=== PATIENT | male | born 1955 | race African-American/Black ===

== ENCOUNTER 2021-01-22 18:13 | Emergency (ER) | payer BC ==
[2021-01-22] MEDS ORDERED: LIDOCAINE 1% MPF 5 ML VIAL ONE (18:52)
[2021-01-22] MEDS ORDERED: TETANUS & DIPHTHERIA TOX,ADULT 0.5 ML VIAL ONE (19:00)
--- NOTE | 2021-01-22 20:06 | ER ---
Nurse's Notes [facility] Name: Fabian Galo Age: 65 yrs Sex: Male : 1955 Arrival Date: 01/22/2021 Time: 18:15 Bed 15 Private MD: Diagnosis: Laceration without foreign body of left thumb without damage to nail Presentation: 01/22 18:24 Chief complaint: Patient states: Tripped over dog. Hit L hand on thor in the back of 1 his vehicle. Laceration to L thumb area. Bleeding controlled with pressure. No blood thinners. Coronavirus screen: Vaccine status: Patient reports receiving the 2nd dose of the covid vaccine. Client denies travel out of the [place] in the last 14 days. At this time, the client does not indicate any symptoms associated with coronavirus-19. Ebola Screen: Patient denies travel to an Ebola-affected area in the 21 days before illness onset. Complicating Factors: There are no complicating factors for this patient. Initial Sepsis Screen: Does the patient meet any 2 criteria? No. Patient's initial sepsis screen is negative. Does the patient have a suspected source of infection? Yes: Skin breakdown/wound. Risk Assessment: Do you want to hurt yourself or someone else? Patient reports no desire to harm self or others. Onset of symptoms was January 22, 2021. 18:24 Method Of Arrival: Ambulatory [facility] 18:24 Acuity: DARLENE 4 ll1 Historical: - Allergies: 18:25 No Known Allergies; ll1 - PMHx: 18:25 None; ll1 - PSHx: 18:25 hernia repair; 1 - Immunization history:: Client reports receiving the 2nd dose of the Covid vaccine, Last tetanus immunization: unknown. - Social history:: Smoking status: Patient reports the use of cigarette tobacco products, smokes one-half pack cigarettes per day. Screenin:41 Abuse screen: Denies threats or abuse. Denies injuries from another. Nutritional jt3 screening: No deficits noted. Tuberculosis screening: No symptoms or risk factors identified. Fall Risk None identified. Assessment: 18:41 Pain: Complains of pain in left arm Pain radiates to left hand Pain currently is 6 out jt3 of 10 on a pain scale. Pain began 3 hours ago. Injury Description: Laceration sustained to left hand is jagged, was sustained 2-4 hours ago. 19:45 Reassessment: Patient is alert, oriented x 3, equal unlabored respirations, skin bb warm/dry/pink. Ale Bay CHIEF OF ANESTHESIOLOGY at bedside for laceration repair to left hand. 20:28 Reassessment: Patient is alert, oriented x 3, equal unlabored respirations, skin bb warm/dry/pink. suture line intact, dressing applied. Pt verbalized understanding of and agrees to plan of care discharge instructions given pt ambulated with steady gait to exit. Musculoskeletal: Circulation, motion, and sensation intact. Vital Signs: 18:24 BP 149 / 89; Pulse 84; Resp 16; Temp 98.3; Pulse Ox 100% ; Weight 63.5 kg; Height 5 ft. ll1 6 in. (167.64 cm); Pain 6/10; 20:29 BP 144 / 91; Pulse 75; Resp 16; Pulse Ox 100% on R/A; bb 18:24 Body Mass Index 22.60 (63.50 kg, 167.64 cm) ll1 ED Course: 18:15 Patient arrived in ED. am2 18:19 Ale [facility]C [facility] kb 18:19 Corrine Christian MD is Attending Physician. kb 18:23 Shimon Vargas, HÉCTOR is Primary Nurse. jt3 18:25 Triage completed. ll1 18:25 Arm band placed on Patient placed in an exam room, on a stretcher. ll1 18:41 Patient has correct armband on for positive identification. Bed in low position. Call jt3 light in reach. Side rails up X2. 18:41 No provider procedures requiring assistance completed. jt3 19:45 Assist provider with laceration repair on left hand using sutures. Set up tray. bb Performed by Ale HARTLEY Dressed with Kerlix, Neosporin, Patient tolerated well. 20:27 Dressings: Kerlix X 1; left hand non-adherent dressing x 1 left hand gabbie wrap to left bb hand. 20:30 Patient did not have IV access during this emergency room visit. 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 Exp: jt3 08/07/2022. Lot #: [id number]. } Route: IM; Site: right deltoid; 20:27 Follow up: Response: No adverse reaction bb 19:45 Drug: Lidocaine (1 %) 1 vials {Note: by Ale Bay CHIEF OF ANESTHESIOLOGY to affected area.} Volume: 5 bb ml; Route: Infiltration; 20:15 Drug: Ibuprofen 600 mg Route: PO; pv 20:27 Follow up: Response: No adverse reaction bb Outcome: 20:05 Discharge ordered by MD. reece 20:29 Discharged to home ambulatory. bb 20:29 Condition: stable 20:29 Discharge instructions given to patient, Instructed on discharge instructions, follow up and referral plans. wound care, Demonstrated understanding of instructions, follow-up care, wound care. 20:30 Patient left the ED. bb Signatures: Ale Bay, COSTING ANALYST-C COSTING ANALYST-Ckb Estrella Kent, RN RN bb Adalgisa Andres Lynsay RN RN ll1 Shimon Vargas RN RN jt3 Braden Dunbar, RN RN pv
--- NOTE | 2021-01-22 20:06 | EDPHYS ---
Physician Documentation [facility] Name: Fabian Galo Age: 65 yrs Sex: Male : 1955 Arrival Date: 01/22/2021 Time: 18:15 Bed 15 Private MD: ED Physician Corrine Christian HPI: 01/22 21:07 This 65 yrs old Black Male presents to ER via Ambulatory with complaints of Laceration kb To Hand, Hand Injury. 21:07 The patient has a laceration related to: falling occurred outdoors, and there are no kb complicating factors. The injury was accidental. The laceration(s) is(are) located on the dorsal aspect of proximal phalanx of left thumb. Onset: The symptoms/episode began/occurred today. Associated signs and symptoms: The patient has no apparent associated signs or symptoms. The patient has not experienced similar symptoms in the past. The patient has not recently seen a physician. Pt states he tripped over his dog and fell forward into his car. States he cut his hand on some tools in the trunk. Historical: - Allergies: 18:25 No Known Allergies; ll1 - PMHx: 18:25 None; ll1 - PSHx: 18:25 hernia repair; ll1 - Immunization history:: Client reports receiving the 2nd dose of the Covid vaccine, Last tetanus immunization: unknown. - Social history:: Smoking status: Patient reports the use of cigarette tobacco products, smokes one-half pack cigarettes per day. ROS: 19:09 Constitutional: Negative for fever, chills, and weight loss. kb 21:09 Skin: Positive for laceration(s), of the dorsal aspect of proximal phalanx of left kb thumb. 21:09 All other systems are negative. Exam: 21:09 Constitutional: This is a well developed, well nourished patient who is awake, alert, kb and in no acute distress. Head/Face: Normocephalic, atraumatic. ENT: Moist Mucous membranes Respiratory: Respirations even and unlabored. No increased work of breathing, no retractions or nasal flaring. MS/ Extremity: Pulses equal, no cyanosis. Neurovascular intact. Full, normal range of motion. Neuro: Awake and alert, GCS 15, oriented to person, place, time, and situation. Moves all extremities. Normal gait. Psych: Awake, alert, with orientation to person, place and time. Behavior, mood, and affect are within normal limits. 21:09 Skin: injury, laceration(s), the wound is approximately 2.5 cm(s), of the dorsal aspect of proximal phalanx of left thumb, that can be described as clean, no foreign body, irregular, with moderate bleeding. Vital Signs: 18:24 BP 149 / 89; Pulse 84; Resp 16; Temp 98.3; Pulse Ox 100% ; Weight 63.5 kg; Height 5 ft. ll1 6 in. (167.64 cm); Pain 6/10; 20:29 BP 144 / 91; Pulse 75; Resp 16; Pulse Ox 100% on R/A; bb 18:24 Body Mass Index 22.60 (63.50 kg, 167.64 cm) ll1 Laceration: 20:04 Wound Repair of 2.5cm ( 1.0in ) subcutaneous laceration to dorsal aspect of proximal kb phalanx of left thumb. Irregularly shaped.. Distal neuro/vascular/tendon intact. Anesthesia: Wound infiltrated with 2 mls of 1% lidocaine. Wound prep: Extensive cleansing with hibiclenz by me, Wound irrigation with saline by me. Skin closed with 5 5-0 Prolene using simple sutures and sterile technique. Patient tolerated well. MDM: 18:19 Patient medically screened. kb 19:09 Data reviewed: vital signs, nurses notes. Data interpreted: Pulse oximetry: on room air kb is 100 %. Interpretation: normal. Counseling: I had a detailed discussion with the patient and/or guardian regarding: the historical points, exam findings, and any diagnostic results supporting the discharge/admit diagnosis, the need for outpatient follow up, a family practitioner, to return to the emergency department if symptoms worsen or persist or if there are any questions or concerns that arise at home. 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 Exp: jt3 08/07/2022. Lot #: [id number]. } Route: IM; Site: right deltoid; 20:27 Follow up: Response: No adverse reaction bb 19:45 Drug: Lidocaine (1 %) 1 vials {Note: by Ale Bay GLAZING SUPERINTENDENT to affected area.} Volume: 5 bb ml; Route: Infiltration; 20:15 Drug: Ibuprofen 600 mg Route: PO; pv 20:27 Follow up: Response: No adverse reaction bb Disposition Summary: 01/22/21 20:05 Discharge Ordered Location: Home kb Condition: Stable kb Diagnosis - Laceration without foreign body of left thumb without damage to nail kb Followup: kb - With: Emergency Department - When: As needed - Reason: Worsening of condition Followup: kb - With: Private Physician - When: 2 - 3 days - Reason: Recheck today's complaints, Continuance of care, Re-evaluation by your physician Discharge Instructions: - Discharge Summary Sheet kb - Laceration Care, Adult, [id number] kb Forms: - Medication Reconciliation Form kb - Thank You Letter kb - Antibiotic Education kb - Work release form kb - Prescription Opioid Use kb Addendum: 01/25/2021 23:00 Co-signature as Attending Physician, Corrine Christian MD PA/GLAZING SUPERINTENDENT's history reviewed, m a2 patient interviewed, and examined. I agree with assessment and care plan and confirm the diagnosis (es) above. Signatures: Ale Bay, MISC EVE-Estrella Valenzuela RN RN bb Corrine Christian MD MD ma2 Quintin Lundy RN RN ll1 Shimon Vargas RN RN jt3 Braden Dunbar, HÉCTOR RN pv Corrections: (The following items were deleted from the chart) 01/22 21:10 21:09 Skin: injury, laceration(s), the wound is approximately 2.5 cm(s), of the dorsal kb aspect of proximal phalanx of left thumb, that can be described as clean, no foreign body, linear, with moderate bleeding, kb
[2021-01-22 20:40] VITALS: TEMP 98.3; O2SAT 100
[2021-01-22 20:42] VITALS: BP 144/91
[2021-01-22] MEDS ORDERED: IBUPROFEN 200 MG TAB PO ONE (20:43)
== END 2021-01-22 20:30 | disposition home or self-care (01) ==
LOC: ER 18:13
PROC: 0JQK0ZZ Repair Left Hand Subcutaneous Tissue and Fascia, Open Approach (ICD-10-PCS; principal; 2021-01-22)
DX: S61.012A Laceration without foreign body of left thumb without damage to nail, initial encounter (principal); W01.198A Fall on same level from slipping, tripping and stumbling with subsequent striking against other object, initial encounter; Z23 Encounter for immunization; F17.210 Nicotine dependence, cigarettes, uncomplicated
CPT/HCPCS: 90471; 90714; 99283

== ENCOUNTER 2023-06-25 12:04 | Emergency (ER) | payer BC ==
--- OUTSIDE RECORDS SUMMARY | 2023-06-25 12:08 | XMS REPORT | Continuity of Care Document ---
Author Name Unknown Address [address] [facility] [address] [place] [address] [facility] thconnect Address [address] [facility] [address] [place] [address] Care Team Providers Care Instructor Kindergarten Name Role Phone PCP, PATIENT DOES NOT HAVE A Primary Care Physic muna Unavailable PAVAN GARG Attending Clinician Unavail able PAVAN GARG Attending Clinician Unavail able LETY RICKS Attending Clinician Unavailable George Olsen MD Attending Clinician [phone] GEORGE OLSEN Attending Clinician Unavailable Lab, Ang - Db Attending Clinician Unavailable Pavan Garg MD Attending Clinician Chen Pack NP Attending Clinician [phone] CHEN PACK Admitting Clinician Unavailab le Payers Payer Name Policy Type Policy Number Effective Date Expirati on Date Source [facility] [id number] 2021 00:00:00 Problems Condition Name Condition Details Condition Category Status Onset Date Resolution Date Last Treatment Date Treating Clinician Comments Source Dizziness and giddiness Dizziness and giddiness Disease Active 06-08 00:00: 00 [facility] Essential hypertensi on Essential hypertensi on Disease Active 06-08 00:00: 00 [facility] Allergies, Adverse Reactions, Alerts Allergy Name Allergy Type Status Severity Reaction(s) Onset Date Inactive Date Treating Clinician Comments Source NO KNOWN ALLERGIE S Drug Class Active [facility] Social History Social Habit Start Date Stop Date Quantity Comments Source [facility] of [facility] use Cigarette Smoker [facility] Tobacco use and exposure 2023-04-07 00:00:00 2023-04-07 00:00:00 Smokeless tobacco non-user [facility] History of Social function 2023-04-07 00:00:00 2023-04-07 00:00:[address] [facility] Sex Ass[birth year] At 1955 00:00:00 1955 00:00:[address] [facility] Smoking Status Start Date Stop Date Source Tobacco smoking consumption unknown [facility] Smokes tobacco daily 2023-04-07 00:00:[address] [facility] Medications Ordered Medication Name Filled Medication Name Start Date Stop Date Current Medication? Ordering Clinician Indication Dosage Frequency Signature (SIG) Comments Components Source aspirin 81 mg EC tablet 04-21 00:00: 00 04-21 05:59 :00 Yes [id number] 9104 81mg Take 1 tablet by mouth in the morning. [facility] atorvastati n 40 mg tablet 04-21 00:00: 00 04-21 05:59 :00 Yes [id number] 9104 40mg Take 1 tablet by mouth at bedtime. [facility] amLODIPine 5 mg tablet 04-21 00:00: 00 04-21 05:59 :00 Yes [id number] 5mg Take 1 tablet by mouth in the morning. [facility] aspirin 81 mg EC tablet 04-21 00:00: 00 04-21 05:59 :00 Yes [id number] 9104 81mg Take 1 tablet by mouth in the morning. [facility] atorvastati n 40 mg tablet 04-21 00:00: 00 04-21 05:59 :00 Yes [id number] 9104 40mg Take 1 tablet by mouth at bedtime. [facility] amLODIPine 5 mg tablet 04-21 00:00: 00 04-21 05:59 :00 Yes [id number] 5mg Take 1 tablet by mouth in the morning. [facility] aspirin 81 mg EC tablet 04-21 00:00: 00 04-21 05:59 :00 Yes [id number] 9104 81mg Take 1 tablet by mouth in the morning. [facility] atorvastati n 40 mg tablet 04-21 00:00: 00 04-21 05:59 :00 Yes [id number] 9104 40mg Take 1 tablet by mouth at bedtime. [facility] amLODIPine 5 mg tablet 04-21 00:00: 00 04-21 05:59 :00 Yes [id number] 5mg Take 1 tablet by mouth in the morning. [facility] aspirin 81 mg EC tablet 04-21 00:00: 00 04-21 05:59 :00 Yes [id number] 9104 81mg Take 1 tablet by mouth in the morning. [facility] atorvastati n 40 mg tablet 04-21 00:00: 00 04-21 05:59 :00 Yes [id number] 9104 40mg Take 1 tablet by mouth at bedtime. [facility] amLODIPine 5 mg tablet 04-21 00:00: 00 04-21 05:59 :00 Yes [id number] 5mg Take 1 tablet by mouth in the morning. [facility] aspirin 81 mg EC tablet 04-21 00:00: 00 04-21 05:59 :00 Yes [id number] 9104 81mg Take 1 tablet by mouth in the morning. [facility] atorvastati n 40 mg tablet 04-21 00:00: 00 04-21 05:59 :00 Yes [id number] 9104 40mg Take 1 tablet by mouth at bedtime. [facility] amLODIPine 5 mg tablet 04-21 00:00: 00 04-21 05:59 :00 Yes [id number] 5mg Take 1 tablet by mouth in the morning. [facility] aspirin 81 mg EC tablet 04-21 00:00: 00 04-21 05:59 :00 Yes [id number] 9104 81mg Take 1 tablet by mouth in the morning. [facility] atorvastati n 40 mg tablet 04-21 00:00: 00 04-21 05:59 :00 Yes [id number] 9104 40mg Take 1 tablet by mouth at bedtime. [facility] amLODIPine 5 mg tablet 04-21 00:00: 00 04-21 05:59 :00 Yes [id number] 5mg Take 1 tablet by mouth in the morning. [facility] aspirin 81 mg EC tablet 04-21 00:00: 00 04-21 05:59 :00 Yes [id number] 9104 81mg Take 1 tablet by mouth in the morning. [facility] atorvastati n 40 mg tablet 04-21 00:00: 00 04-21 05:59 :00 Yes [id number] 9104 40mg Take 1 tablet by mouth at bedtime. [facility] amLODIPine 5 mg tablet 04-21 00:00: 00 04-21 05:59 :00 Yes [id number] 5mg Take 1 tablet by mouth in the morning. [facility] aspirin 81 mg EC tablet 04-21 00:00: 00 04-21 05:59 :00 Yes [id number] 9104 81mg Take 1 tablet by mouth in the morning. [facility] atorvastati n 40 mg tablet 04-21 00:00: 00 04-21 05:59 :00 Yes [id number] 9104 40mg Take 1 tablet by mouth at bedtime. [facility] amLODIPine 5 mg tablet 04-21 00:00: 00 04-21 05:59 :00 Yes [id number] 5mg Take 1 tablet by mouth in the morning. [facility] docusate (COLACE) 50 mg/5 mL solution 100 mg 04-03 15:00: 00 Yes 100mg 100 mg, Oral, DAILY, First dose on Mon04/03/23 at 0900, Until Discontinu ed, Routine [facility] iopamidol (ISOVUE 370-500 mL) injection 80 mL 04-02 23:30: 00 04-02 23:45 :00 No [id number] 80mL 80 mL, Intravenou s, ONCE, 1 dose, On 04/02/23 at 1745, Routine [facility] meclizine (TRAVEL-EAS E (MECLIZINE) ) tablet 25 mg 04-02 21:00: 00 04-02 21:26 :00 No 25mg 25 mg, Oral, ONCE, 1 dose, On Mon04/02/23 at 1500, SAM [facility] NaCl 0.9% (NS) bolus infusion 1,000 mL 04-02 21:00: 00 04-02 21:27 :00 No 1000mL at 999 mL/hr, 1,000 mL, IV Infusion, ONCE, 1 dose, On 04/02/23 at 1500, SAM [facility] meclizine 25 mg tablet 04-02 00:00: 00 Yes [id number] 25mg Take 1 tablet by mouth 3 (three) times daily as needed for Dizziness. [facility] meclizine 25 mg tablet 04-02 00:00: 00 Yes [id number] 25mg Take 1 tablet by mouth 3 (three) times daily as needed for Dizziness. [facility] meclizine 25 mg tablet 04-02 00:00: 00 Yes [id number] 25mg Take 1 tablet by mouth 3 (three) times daily as needed for Dizziness. [facility] meclizine 25 mg tablet 04-02 00:00: 00 Yes [id number] 25mg Take 1 tablet by mouth 3 (three) times daily as needed for Dizziness. [facility] meclizine 25 mg tablet 04-02 00:00: 00 Yes [id number] 25mg Take 1 tablet by mouth 3 (three) times daily as needed for Dizziness. [facility] meclizine 25 mg tablet 0 04-02 00:00: 00 Yes [id number] 25mg Take 1 tablet by mouth 3 (three) times daily as needed for Dizziness. [facility] meclizine 25 mg tablet 0 04-02 00:00: 00 Yes [id number] 25mg Take 1 tablet by mouth 3 (three) times daily as needed for Dizziness. [facility] meclizine 25 mg tablet 2023-0 04-02 00:00: 00 Yes [id number] 25mg Take 1 tablet by mouth 3 (three) times daily as needed for Dizziness. [facility] meclizine 25 mg tablet 2023-0 04-02 00:00: 00 Yes [id number] 25mg Take 1 tablet by mouth 3 (three) times daily as needed for Dizziness. [facility] meclizine 25 mg tablet 0 04-02 00:00: 00 Yes [id number] 25mg Take 1 tablet by mouth 3 (three) times daily as needed for Dizziness. [facility] meclizine 25 mg tablet 0 04-02 00:00: 00 Yes [id number] 25mg Take 1 tablet by mouth 3 (three) times daily as needed for Dizziness. [facility] meclizine 25 mg tablet 0 04-02 00:00: 00 Yes [id number] 25mg Take 1 tablet by mouth 3 (three) times daily as needed for Dizziness. [facility] meclizine 25 mg tablet 2023-0 04-02 00:00: 00 Yes [id number] 25mg Take 1 tablet by mouth 3 (three) times daily as needed for Dizziness. [facility] meclizine 25 mg tablet 2023-0 04-02 00:00: 00 Yes [id number] 25mg Take 1 tablet by mouth 3 (three) times daily as needed for Dizziness. [facility] meclizine 25 mg tablet 0 04-02 00:00: 00 Yes [id number] 25mg Take 1 tablet by mouth 3 (three) times daily as needed for Dizziness. [facility] Vital Signs Vital Name Observation Time Observation Value Comments S annie Systolic blood pressure 2023-06-09 21:10:00 129 mm[Hg] [facility] Diastolic blood pressure 2023-06-09 21:10:00 73 mm[Hg] [facility] Heart rate 2023-06-09 21:10:00 61 /min [facility] Respiratory rate 2023-06-09 21:10:00 20 /min [facility] Body height 2023-06-09 21:10:00 170.2 cm [facility] Body weight 2023-06-09 21:10:00 62.234 kg [facility] BMI 2023-06-09 21:10:00 21.49 kg/m2 [facility] Oxygen saturation in Arterial blood by Pulse oximetry 2023-06-09 21:10:00 97 /min [facility] Systolic blood pressure 2023-04-21 22:39:00 152 mm[Hg] [facility] Diastolic blood pressure 2023-04-21 22:39:00 103 mm[Hg] [facility] Heart rate 2023-04-21 22:39:00 72 /min [facility] Body temperature 2023-04-21 21:57:[address] [facility] Respiratory rate 2023-04-21 21:57:00 18 /min [facility] Body weight 2023-04-21 21:57:00 63.141 kg [facility] BMI 2023-04-21 21:57:00 21.80 kg/m2 [facility] Oxygen saturation in Arterial blood by Pulse oximetry 2023-04-21 21:57:00 98 /min [facility] Systolic blood pressure 2023-04-07 18:02:00 132 mm[Hg] [facility] Diastolic blood pressure 2023-04-07 18:02:00 89 mm[Hg] [facility] Heart rate 2023-04-07 17:52:00 58 /min [facility] Respiratory rate 2023-04-07 17:52:00 18 /min [facility] Body height 2023-04-07 17:52:00 170.2 cm [facility] Body weight 2023-04-07 17:52:00 61.236 kg [facility] BMI 2023-04-07 17:52:00 21.14 kg/m2 [facility] Oxygen saturation in Arterial blood by Pulse oximetry 2023-04-07 17:52:00 100 /min [facility] Systolic blood pressure 2023-04-03 01:00:00 145 mm[Hg] [facility] Diastolic blood pressure 2023-04-03 01:00:00 85 mm[Hg] [facility] Heart rate 2023-04-03 01:00:00 47 /min [facility] Body temperature 2023-04-03 01:00:[address] [facility] Respiratory rate 2023-04-03 01:00:00 17 /min [facility] Oxygen saturation in Arterial blood by Pulse oximetry 2023-04-03 01:00:00 100 /min [facility] Body height 2023-04-02 18:14:00 170.2 cm [facility] Body weight 2023-04-02 18:14:00 62.596 kg [facility] BMI 2023-04-02 18:14:00 21.61 kg/m2 [facility] Procedures Procedure Date / Time Performed Performing Clinicia n Source CT HEAD WO CONTRAST 2023-04-02 18:57:[address] [facility] TROPONIN I 2023-04-02 18:36:00 Chen Pack [facility] COMP. METABOLIC PANEL (08270) 2023-04-02 18:36:[address] [facility] CBC WITH DIFF 2023-04-02 18:36:00 Chen Pack [facility] D-DIMER 2023-04-02 18:36:00 Chen Pack [facility] HB ECG ROUTINE & RHYTHM STRIP 2023-04-02 18:27:[address] [facility] NOTICE OF PRIVACY PRACTICES 2023-04-02 18:11:52 Doctor Unassigned, [place] [facility] CONSENT/REFUSAL FOR DIAGNOSIS AND TREATMENT 2023-04-02 18:10:49 Doctor Unassigned, [place] [facility] Encounters Start Date/Time End Date/Time Encounter Type Admission Type Attending Clinicians Care Facility Care Department Encounter ID Source 2023-07-03 08:00:00 2023-07-03 08:00:00 Outpatient PAVAN [facility] [id number] [facility] 2023-06-20 15:00:00 2023-06-20 15:00:00 Outpatient LETY [facility] [id number] [facility] 2023-06-09 16:00:00 2023-06-09 16:30:00 Office Visit Raúl [facility] 1.2.840.114 350.1.13.10 4.2.7.2.686 [id number] [facility] 2023-06-09 16:00:00 2023-06-09 16:00:00 [facility]patient [facility] [id number] [facility] 2023-05-09 00:00:00 2023-05-09 00:00:00 Telephone Raúl [facility] 1.2.840.114 350.1.13.10 4.2.7.2.686 [id number] [facility] 2023-04-24 11:45:00 2023-04-24 12:34:31 Outpatient PAVAN [facility] [id number] [facility] 2023-04-24 11:45:00 2023-04-24 12:00:00 Time Stamp Assembler Visit Lab, Pavan Shepherd [facility] 1.2.840.114 350.1.13.10 4.2.7.2.686 [id number] [facility] 2023-04-21 16:00:00 2023-04-21 16:51:06 Office Visit George Olsen [facility] 1.2.840.114 350.1.13.10 4.2.7.2.686 [id number] [facility] 2023-04-21 16:00:00 2023-04-21 16:51:06 Outpatient R RAÚL [facility] [id number] [facility] 2023-04-19 00:00:00 2023-04-19 00:00:00 Telephone Raúl [facility] 1..840.114 350.1.13.10 4.2.7.2.686 [id number] [facility] 2023-04-10 00:00:00 2023-04-10 00:00:00 Telephone Pavan Garg [facility] 1.2.840.114 350.1.13.10 4.2.7.2.686 [id number] [facility] 2023-04-07 13:08:48 2023-04-07 23:59:00 Outpatient R PAVAN GARG [facility] [id number] [facility] 2023-04-07 13:08:48 2023-04-07 23:59:00 Hospital Encounter Pavan Garg [facility] 1.2.840.114 350.1.13.10 4.2.7.2.686 [id number] [facility] 2023-04-07 11:40:00 2023-04-07 13:09:12 Office Visit [place], Pavan [facility] 1.2.840.114 350.1.13.10 4.2.7.2.686 [id number] [facility] 2023-04-02 12:16:00 2023-04-02 19:45:00 Emergency Chen Pack [facility] 1.2.840.114 350.1.13.10 4.2.7.2.686 [id number] [facility] 2023-04-02 12:16:00 2023-04-02 19:45:00 Emergency X STEPHANI PACKHARLEY [facility] ERT [id number] [facility] Results Test Description Test Time Test Comments Results Result Comments Source CT HEAD WO CONTRAST 21:44:55 EXAM: CT HEAD WO CONTRAST HISTORY: 67 years-old Male; Provided indication: syncope . TECHNIQUE: Axial CT of the head was performed and reconstructed at 5 mmintervals. Coronal and sagittal reformatted images were generated. COMPARISON: None FINDINGS: Bifrontal parietal prominence of CSF space could be related todisproportional underlying cortical volume loss. No midline shift orpathological extra-axial fluid collection is present. The basal cisternsare unremarkable. No acute intraparenchymal hemorrhage or significant mass effect isvisualized. No parenchymal attenuation abnormality is seen. The schmidt-whitematter differentiation is preserved. ? The mastoid air cells and paranasal air sinuses are clear. Punctatecalcification at the outer table of the occipital bone right to the midline(8; 18-20) could be related to remote trauma. The calvarium and centralskull base are unremarkable. [facility] [id number] 19:31:31* Test Item Value Reference Range Interpretation Comme nts TROPONIN I (test code = 0862088928) 0.004 ng/mL <=0.034 ZACHARY (test code = ZACHARY) Reference (Normal) Range (defined by the 99th percentile reference limit): <= 0.034 ng/mL Note: Cardiac troponin begins to rise 3-4 hours after the onset of ischemia. Repeat in 4-6 hours if the sample was drawn within 3-4 hours of the onset of the symptom and found normal. Diagnosis of myocardial injury is made with acute changes in cTn concentrations with at least one serial sample above the 99th percentile upper reference limit (URL), taken together with the patient's clinical presentation. Biotin has been reported to cause a negative bias, interpret results relative to patient's use of biotin. Lab Interpretation (test code = 98086-6) Normal [facility]. METABOLIC PANEL (44854)2023-04-02 19:19:48* Test Item Value Reference Range Interpretation Comme nts NA (test code = 8556885993) 140 mmol/L 135-145 K (test code = 4883300099) 4.1 mmol/L 3.5-5.0 CL (test code = 4491120381) 107 mmol/L 98-108 CO2 TOTAL (test code = 6978285356) 24 mmol/L 23-31 AGAP (test code = 0825382606) 9 2-16 BUN (test code = 8339636099) 13 mg/dL 7-23 GLUCOSE (test code = 5524900601) 97 mg/dL 70-110 CREATININE (test code = 1696423213) 0.95 mg/dL 0.60-1.25 TOTAL BILI (test code = 3974938091) 0.7 mg/dL 0.1-1.1 CALCIUM (test code = 9844586161) 9.5 mg/dL 8.6-10.6 T PROTEIN (test code = 5066002173) 7.4 g/dL 6.3-8.2 ALBUMIN (test code = 6280626699) 4.1 g/dL 3.5-5.0 ALK PHOS (test code = 9046203015) 81 U/L 34-122 ALTv (test code = 1742-6) 54 U/L 5-50 H AST(SGOT) (test code = 1512150966) 60 U/L 13-40 H eGFR (test code = 90628-1) 86.6 mL/min/1.73m2 CKD-EPI eGFR (2020). Assuming creatinine has been stable day-to-day for at least three months, the eGFR indicates Category G2 (60 - 89 mL/min/1.73 m2) Lab Interpretation (test code = 16530-0) Abnormal [facility] 19:16:11* Test Item Value Reference Range Interpretation Comments D-DIMER (test code = 5896868845) 0.32 See_Comment [Automated message] The system which generated this result transmitted reference range: <0.41 ?g/mL (FEU). The reference range was not used to interpret this result as normal/abnormal. ZACHARY (test code = ZACHARY) This test may be used in conjunction with a clinical pretest probability (PTP) assessment model to exclude venous thromboembolism (VTE) in patients suspected of deep venous thrombosis (DVT) and pulmonary embolism (PE) A D-Dimer value less than 0.50 ?g/ml (FEU) has a negative predicative value of 96 to 100% (95% CI)and 97 to 100% (95% CI) as an aid in the diagnosis of deep vein thrombosis (DVT) and pulmonary embolism when there is low or moderate pretest probability of PE or DVT. D-Dimer values are expressed in initial fibrinogen equivalent units (FEU)" The assay results should be used with other information, including the clinical context, in forming a diagnosis. Lab Interpretation (test code = 55728-9) Normal [facility] Notes Date/Time Note Provider Source 2023-05-09 15:44:14 4nQpJF+fAgYbU55csE3g gtPR+ut8euE2pb O2FHsc4iK2aHW/Crtaio77HUY5iNgB2069 -02-13T15:44:14 Attempted to contact patient with no answer, unable to leave voicemail do to box being full. 72616-3Bessopnbf encounter BqelGJ4021-48-84M68:44:38Telephone encounter NoteTXT1.2.840.387950.1.13.104.2.7 .2.789487|[id number] for patient xyyv69781-9YwfwWCPCWUIFBTXKtkpgktz d C-CDA narrative [id number] A Hall RN[address] 26ZXDFFNFPCPSAICAPZJQNZM2758-99-82 T15:44:381.2.840.209111.1.72.3.15| 1.2.840.401116.1.13.104.2.7.2.7278 [id number] Zheng Milligan RN [facility] 2023-05-09 13:22:22 mpSoDZ0ymNdGRyUUF2S4 drwbE1z4kqeh6g I8XbP/hcdxmYuRwGdAvzx1Y9HYENkp7991 -02-13T13:22:22 Attempted to contact patient with no answer, unable to leave voicemail due to mailbox being full. 80133-6Lgeabebym encounter KhxwLR3588-83-78U73:22:45Telephone encounter NoteTXT1.2.840.190317.1.13.104.2.7 .2.389549|[id number] for patient ptev74807-4DdvxIXFQEOJYQHGTrkxrdrw d C-CDA narrative qsds462116784Hwqdue A Hall [address] 07MIJFDIGGWSMPWBZADJOSUE4491-32-90 T13:22:451.2.840.367791.1.72.3.15| 1.2.840.654859.1.13.104.2.7.2.7278 [id number] Zheng Milligan RN [facility] 2023-05-09 10:30:15 jL1leFxChFCY65pJtF5L NCQQNoNc959ojq xlWJoFrhpoE8M6Y3a9BhqKSL1pkXHS0385 -02-13T10:30:15 Pt would like a break down of what his medication is and what it is taken for.Please Assist 97646-4Dkfxcjjfp encounter BwsqYN9680-11-98L72:31:37Telephone encounter NoteTXT1.2.840.484371.1.13.104.2.7 .2.025409|[id number] for patient ebif60772-1QoboPBMIDTLERWAKdiazjtc d C-CDA narrative uksy240344559Norefugjk Hair[address] JjrcMgzjyjycfLpqillgduBHDZ66508222 96VEVWYSGPDOQXHIKCSJNBKE6185-16-56 T10:31:371.2.840.476808.1.72.3.15| 1.2.840.761859.1.13.104.2.7.2.7278 [id number] Bright Arndt [facility] 2023-04-24 11:45:00 NN1VyJbMPoFl9lcEsv+W bPXaOeu+ABoHbs V4puFznj5wPByNzksmkEx/XkUaweww2102 -01-29T11:45:00 Images from the original note were not included.Venipuncture collection performed by clean technique on the right anticubitus. Total of 1 attempts were made. Slight pressure and a bandage/dressing were applied to the site(s). The patient experienced no complications. The following specimens were processed according to instructions and sent to [facility] laboratories per lab order on 04/24/2023 :LT BLUESST 1REDLAVPPTDK GREEN (LiHep)DK GREEN (SodH)GRAYDK BLUE (K2)DK BLUE (S)ACDBlood CultureNIPT/NTD 41425-5Xfggl FpsqIP7096-60-33L27:59:33Nurse NoteTXT1.2.840.876604.1.13.104.2.7 .2.657083|[id number] for patient wayy62195-7Pbekl NoteLNNARRATIVEFormatted C-CDA narrative text[id number] 97HSDNLVZUGSLMQYOXNERSND2927-18-02 T11:59:331.2.840.447311.1.72.3.15| 1.2.840.217635.1.13.104.2.7.2.7278 [id number] [facility] 2023-04-21 16:00:00 hSJPAAAC6YoFqQEVehg9 bmftH8dElwd9UV JBMZnPD+Le280INZ//5mSE5WV0QiXm5262 -01-26T16:00:00Addended by: ZHENG MILLIGAN RN on: 04/24/2023 11:49 AMModules accepted: Orders 56317-3Suomjbtg XympvztvCA1041-92-26C22:49:16Adden dum DocumentTXT1.2.840.941315.1.13.104 .2.7.2.524787|[id number] e for patient jfnb86926-1OeoaNSUKTYKJBSORhtongmt d C-CDA narrative [id number] A Hall RNRADHA[id number] 40JDSNDCNQGBHKMRGDWKGXKT2332-53-89 T11:49:161.2.840.113471.1.72.3.15| 1.2.840.861681.1.13.104.2.7.2.7278 [id number] Zheng Milligan RN [facility] 2023-04-19 13:31:58 YjKnzAERcCiHxoIWqW7H QQDbNJXFUq5NRf YW7impkZF5ku0XNF9yupYnhRA9WOyR6306 -01-24T13:31:58 Joe Galo is a 67 year old male that is asking to be called and told what his copay or the $ amount for his appt for 04/21/23.Please advise. 75256-6Ogtlmldko encounter UbbwJW1462-40-53S24:33:50Telephone encounter NoteTXT1.2.840.633916.1.13.104.2.7 .2.760610|[id number] for patient rjxv72220-4ZjbcIMVIHFNJELSSgfyyneq d C-CDA narrative [id number] Jr[address] XdjjZncqnhfwwJjuhoiduxKETK56438107 15JCYSUFRGWXTNIKHUILAXSW4954-63-14 T13:33:501.2.840.953188.1.72.3.15| 1.2.840.591273.1.13.104.2.7.2.7278 [id number] [facility] [facility] 2023-04-13 10:59:34 MxB31y5d84trQ4mstxNf F+hLcZ2ie2oZS6 4vNqRoE2UhmbKwPTa6/TDVQFfq8n4a4769 -01-18T10:59:34 Were you going to be ordering the heart monitor or was he needing to see cardio for that? Pt stated you were going to order it.I will order and then cardiology will follow up on it. 06440-4Jvkylrlzu encounter SdbjFL1109692Wqhajdr, Howard Gene1.2.840.148676.1.13.104.2.7.2. 302203LwwpyrsPtbdncSxlnWZ4192-33-0 9T17:47:12Telephone encounter NoteTXT1.2.840.941930.1.13.104.2.7 .2.349999|[id number] for patient qsqw66056-3QnsgIBJRDDJSVSZMkjgbsif d C-CDA narrative [id number] 99WQNEMGTCHLNGEKLVMGZUQR3148-90-57 T17:47:121.2.840.366820.1.72.3.15| 1.2.840.798251.1.13.104.2.7.2.7278 79_[id number] [facility] 2023-04-13 10:38:10 z/Uv0QuFFW4iEAjC03WO zpm6R8ueusn6yH DnTrwaNV6IfpgRAh8vD8pR5Uo7HDnd9782 -01-18T10:38:10 C-spine xrayIMPRESSION1. No acute osseous findings are seen.2. Moderate multilevel degenerative changes of the cervical spine.I don't know what medicine he was given in ER, the one listed in the chart is for dizziness. 92736-2Zsaiiksoc encounter KrtmEJ5421-51-74U66:39:22Telephone encounter NoteTXT1.2.840.349205.1.13.104.2.7 .2.630165|[id number] for patient pexl94657-7GmtsSONALRBIOPYHkwdyklm d C-CDA narrative [id number] 95WAWQKXEIAGPNSIXUYZPAYF2074-81-85 T10:39:221.2.840.711014.1.72.3.15| 1.2.840.977076.1.13.104.2.7.2.7278 79_[id number] [facility] 2023-04-12 16:30:56 f3x7gBM/Q9VSIuRzE75D abrX04RUnhjNaE uQSApmHegr8UfPGIliomqsRFgbDqHS8962 -01-17T16:30:56 I already spoke with pt this morning and let him know I was sending the message to Dr. Garg and I would have to wait for Dr. Garg's response.Dr. Garg, pt wants to know results of Xray. Pt wants you to order heart monitor. Pt needs a refill of Meclizine. 72040-8Eyzhyglzm encounter ZnomGT1537-19-63T02:37:38Telephone encounter NoteTXT1.2.840.124153.1.13.104.2.7 .2.890240|[id number] for patient kixc89235-0EdjqFPTSEHWZJOXDprsoowz d C-CDA narrative text[address] MtzdWcvt[id number] 02HARIJYDLAFDZJRDSAYJLPF7108-96-21 T16:37:381.2.840.805609.1.72.3.15| 1.2.840.625041.1.13.104.2.7.2.7278 79_[id number] [facility] 2023-04-12 16:03:12 1aDDtykBDi6BVsqrzHka afalDtdw2JJKlD btaD5wuxCCKlOyCpTZcdLxcGv3tFru1204 -01-17T16:03:12 Joe Galo is a 67 year old male Pt is calling about his results from his test he had last week and when are the other test going to be ordered . Pt also stated he's almost out of his medication that the ER. Gave him. Please advise. 41904-8Gnrwgnoyi encounter KssqXH3128-59-34W01:09:17Telephone encounter NoteTXT1.2.840.222994.1.13.104.2.7 .2.791033|[id number] for patient pfsw34587-2OlikMEZCLYEINKDSfjderuz d C-CDA narrative [id number] D [id number] 81ECCCHFUVMYTUADINFOYELC6397-14-09 T16:09:171.2.840.026686.1.72.3.15| 1.2.840.507013.1.13.104.2.7.2.7278 79_[id number] Crystal D [facility] 2023-04-12 11:48:10 P+NyYU2SwPGRWGyiJXkV H8zOxur1fh4KM6 IJXZARkk0iR1HCXm8eAjIkkJy5NdSl2803 -01-17T11:48:10 Called pt and let him know per SUKUMAR note, referral for cardiology would be placed. Referral ordered. It is not noted that Dr. Garg would order heart monitor, that would generally be done by cardiology. Pt reports that Dr. Garg told him that he was going to order the heart monitor. Let pt know I would follow up with Dr. Garg.Dr. Garg were you going to order the heart monitor? 96663-2Brfwdibbq encounter KgpoUX5668-88-02R47:51:13Telephone encounter NoteTXT1.2.840.491627.1.13.104.2.7 .2.207552|[id number] for patient fsuw10632-2YfwbCJEACSGSKEHTzerbygo d C-CDA narrative text[id number] 88RZDYGPGEGJWSWUSKABJOJZ2601-04-96 T11:51:131.2.840.623090.1.72.3.15| 1.2.840.659797.1.13.104.2.7.2.7278 79_[id number] [facility] 2023-04-12 10:50:12 Johnston/L84Nz75RPw7FpUoY4 aq+Yi72K6rvDfy RyPHNefOpzb8Sa/fdNU7zDjXixCkl46445 -01-17T10:50:12 Pt was STILL requesting heart monitor. Pt states that they have been trying to find out what the hold-up is. They have been trying to contact since last appt to receive monitor. Pt does not use [employer] so would like to be contacted directly with answer. 70205-3Micjljvhq encounter LpyuVL3454-10-23Q59:56:24Telephone encounter NoteTXT1.2.840.992837.1.13.104.2.7 .2.623440|[id number] for patient glst05099-2CtjmAPOAACQUJIAXhfxlhcj d C-CDA narrative [id number] [address] BdnfJqtshagofNkdhtklgoONZU21700084 47IOEICFNECMMPQPBRGWSPYB5969-95-59 T10:56:241.2.840.312926.1.72.3.15| 1.2.840.906527.1.13.104.2.7.2.7278 79_[id number] Blade Dubon [facility] 2023-04-11 10:54:59 c5sm4VprrcseuwlZvMK+ IPYjF7R8FDP67o rYkWl3UjxmmkxvUdbH+chmqhKtwTNw2246 -01-16T10:54:59 Dr. Garg, were you going to order a heart monitor? If so, please place order. SUKUMAR 04/07/23. Note has not been closed.Pt had Xray completed on 04/07/23, has not been resulted yet. EKG not ordered by Dr. Garg and not completed. 52990-3Madkdosoz encounter EfbsEQ0000-85-72X60:10:38Telephone encounter NoteTXT1.2.840.062293.1.13.104.2.7 .2.748920|[id number] for patient oeeg65885-6QqoaFFHVOYKFSCDIjjvfyvg d C-CDA narrative text[address] LjcnQlob[id number] 23PTSYLKQKVUKLYSBDPJLFLL2731-99-23 T11:10:381.2.840.617739.1.72.3.15| 1.2.840.509417.1.13.104.2.7.2.7278 79_[id number] [facility] 2023-04-10 11:56:12 UBfvpkMUE2ftAYKzqbHO EJAqoODtRMFsq5 k9hOLAXt+bKHJY5mWMtaMU1iNDtmp37704 -01-15T11:56:12 Joe Galo is a 67 year old malePt calling requesting results of EKG done on 04/07/23. Pt. Also asking for status of heart monitor. Pt states he was suppose to have one put on but was told it had to be ordered and hasn't received a call. Please advise. 93640-1Tcpbzujrm encounter UdjaTX2554-06-20I98:59:17Telephone encounter NoteTXT1.2.840.118749.1.13.104.2.7 .2.616002|[id number] for patient muzv48304-9AzjqJTXIOLHIMJDEbfcrirj d C-CDA narrative wevq248599078Aqktq Element[id number] 00XNMKXOUSUACWOYDLCVQIJB6782-39-58 T11:59:171.2.840.518016.1.72.3.15| 1.2.840.556466.1.13.104.2.7.2.7278 79_[id number] Smooth Lindsay [facility] 2023-04-02 19:44:20 pDAW7sUXwUJnE2uGwpWn 7LtUWDx4rBW1za 41FMFOQFKcjBTkobeyhu3++ue0SN9w0666 -01-07T19:44:20 Pt given printed and verbal discharge instructions regarding vertigo, syncope, bilateral impacted cerumen, and dizziness.Prescriptions providedPt verbalized understanding of instructions, pt awake alert oriented, resp reg unlabored, skin w/d, color appropriate for race, moves all ext well,pt encouraged to follow up with pcpAdvised to seek medical attention for new/prolonged/worsening of symptomsNo adverse reaction to meds given in ER noted upon dischargePIV d'cd, dressing to site, catheter in tact.Awake, alert oriented, resp reg unlabored, skin w/d, pt leaving amb with steady gait, in no apparent distress 11173-7Algbmwwor department GptzXA2500-60-26O95:45:05Emergency department NoteTXT1.2.840.364803.1.13.104.2.7 .2.979963|[id number] for patient hhym33893-8KsmlTASYNESBRSKNuzjoomc d C-CDA narrative gxtg457526106Oxvwcmo A Diaz RN[id number] 29GTOJHZSZRQPEWUEXMGKJBF9662-60-73 T19:45:051.2.840.570410.1.72.3.15| 1.2.840.049186.1.13.104.2.7.2.7278 79_[id number] Chelle Vasquez RN [facility] 2023-04-02 12:59:40 3W53gU7hf066WjKI0tEG +ZPEleHaPQAhLJ 5asiDNKxePkS/y15wy1/tFjeV0g2T46307 -01-07T12:59:40 ERP notified of the patient being dizzy and almost syncopal episode when the diamond powder technician helped the patient get off the CT table and into the wheelchair. Patient also complained of consistent dizziness during the orthostatic vital signs. 24730-4Armijkuan department VajvCG6398-50-02K89:00:41Emergency department NoteTXT1.2.840.429824.1.13.104.2.7 .2.710656|[id number] for patient nmzl68251-0NcgvIWUTIRVLNUTKgjywweo d C-CDA narrative [id number] M Felix RNUT[address] Bx[id number] 96QMUXUVGUXIGNQJAVHDECTE7121-97-94 T13:00:411.2.840.071266.1.72.3.15| 1.2.840.547342.1.13.104.2.7.2.7278 79_[id number] Nicki Morley RN [facility] 2023-04-02 12:35:59 [facility]/e90igSwOpa0o7wXA bdcz6SPn2rcRtU J1rVPVTAE4O+2URx8bZT0E9IuHv8lh6719 -01-07T12:35:59 04/02/23 1230 04/02/23 1232 04/02/23 1234Orthostatic VitalsBP 151/83(patient complains of feeling dizzy while lying down) 171/88(Complaing of feeling dizzy while sitting up on the side of the bed) (!) 170/96(Patient feeling a little whoozy but the longer he stood the dizziness went away)BP Location Left arm Left arm Left armPosition Lying Sitting StandingPulse 58 68 66 75948-4Qltsrhplq department FgqvKU9788-24-38N96:36:05[facility] department NoteTXT1.2.840.860111.1.13.104.2.7 .2.987847|[id number] for patient yank93704-2AvhlKJBACBUQNOLAxxdptnb d C-CDA narrative text[id number] 44FUNLZZPNZKYDHSDXPGVAPD1687-28-28 T12:36:051.2.840.098376.1.72.3.15| 1.2.840.884100.1.13.104.2.7.2.7278 79_[id number] [facility] 2023-04-02 12:35:44 NbMkTHDEyxDat2bhZLo+ hwqqHy4E4Snsq2 PxMVai0U0I02dk0hiagc6vj4Hxfjb68600 -01-07T12:35:44 04/02/23 1230 04/02/23 1232 04/02/23 1234Orthostatic VitalsBP 151/83(patient complains of feeling dizzy while lying down) 171/88(Complaing of feeling dizzy while sitting up on the side of the bed) (!) 170/96(Patient feeling a little whoozy but the longer he stood the dizziness went away)BP Location Left arm Left arm Left armPosition Lying Sitting StandingPulse 58 68 66 41263-8Eajue BhedXW3448-71-66M32:35:53Nurse NoteTXT1.2.840.214930.1.13.104.2.7 .2.424710|[id number] for patient ulwn67106-9SsweVBZGLJNHHVPKksmsxvx d C-CDA narrative [id number] 40HZKJELNFIIJFLZWFZBQKPJ8659-77-80 T12:35:531.2.840.066362.1.72.3.15| 1.2.840.089373.1.13.104.2.7.2.7278 79_[id number] [facility] 2023-04-02 12:12:47 AsZsuC5NkbIm42pwR2bY Vin+Lo+hsJNaEXM mRxrKlWdod0NtJkKVB9SPn2l5MCOj40843 -01-07T12:12:47 CC: patient presents to the ER with complaints of syncope that occurred this morning when getting up out of bed. States symptoms happened twice, patient has been sitting up because laying down makes symptoms worse.Awake, alert, oriented, resp reg unlabored, skin warm and dry, color appropriate for race, moves all ext without difficulty, amb without assistance.Appears in no distress. 07553-5Qhlyvtysp department Triage hvwkGC1658-32-77Q90:14:17[facility] Triage noteTXT1.2.840.278779.1.13.104.2.7 .2.632713|[id number] for patient wawq84632-2Jlpqtqajc department NoteLNNARRATIVEFormatted C-CDA narrative [id number] 25SDHPFPXIJAQMGPPDYTMBTX5948-32-98 T12:14:171.2.840.315806.1.72.3.15| 1.2.840.375082.1.13.104.2.7.2.7278 [id number] [facility]
[2023-06-25] MEDS ORDERED: MECLIZINE HCL 12.5 MG TAB ONE (12:33)
[2023-06-25 12:43] LABS: Absolute Eosinophils 0.3 K/uL (0-0.5); Absolute Lymphocytes (CBC) 2.3 K/uL (0.7-4.9); Absolute Monocytes 0.7 K/uL (0.1-1.3); Absolute Neutrophil 2.6 K/uL (1.8-8.0); Basophils % 0.8 % (0-1.3); Eosinophils % 5.6 % (0-4.4); Hematocrit 41.5 % (39.6-49.0); Hemoglobin 13.4 g/dL (13.6-17.9); Lymphocytes % 38.2 % (15.3-44.8); MCH 26.6 pg (27.0-35.0); MCHC 32.4 g/dL (32.0-36.0); MCV 82.2 fL (80-100); MPV 8.1 fL (7.6-11.3); Monocytes % 12.1 % (3.3-12.3); Neutrophils % 43.3 % (41.7-73.7); Nucleated Red Blood Cells % 0.1 % (0-0); Platelets 150 thou/uL (152-406); RBC Red Blood Cell Count 5.05 M/uL (4.33-5.43); Red Cell Distribution Width 14.4 % (12.1-15.2)
[2023-06-25 12:56] LABS: Albumin 3.4 g/dL (3.4-5.0); Anion Gap 8.1 mEq/L (5.0-15.0); Bilirubin Direct 0.2 mg/dL (0-0.2); Bilirubin Indirect, Calculated 0.4 mg/dL (0.2-0.8); Bilirubin Total 0.6 mg/dL (0.2-1.0); Globulin 3.5 g/dL (2.3-3.5); Magnesium 2.3 mg/dL (1.6-2.4); Potassium 4.1 mEq/L (3.5-5.1); Protein, Total 6.9 g/dL (6.4-8.2); Troponin High Sensitivity 6.1 pg/mL (<58.9)
--- NOTE | 2023-06-25 13:06 | RAD REPORT ---
EXAM DESCRIPTION: CT - Head Brain Wo Cont - 06/25/2023 12:59 pm CLINICAL HISTORY: DIZZINESS COMPARISON: No comparisons TECHNIQUE: All CT scans are performed using dose optimization technique as appropriate and may inclu de automated exposure control or mA/KV adjustment according to patient size. FINDINGS: No intracranial hemorrhage, hydrocephalus or extra-axial fluid collection.No areas of brai n edema or evidence of midline shift. Cerebral atrophy. Left anterior ethmoid air cell thickening. Mild thickening in the left frontal sinus. The calvarium i s intact. IMPRESSION: No acute intracranial abnormality.
--- NOTE | 2023-06-25 13:19 | ER ---
Nurse's Notes [facility] Name: Fabian Galo Age: 67 yrs Sex: Male : 1955 Arrival Date: 06/25/2023 Time: 12:04 Bed 5 Private MD: Diagnosis: Vertigo, dizziness Presentation: 06/24 12:12 Method Of Arrival: Ambulatory as6 12:21 Chief complaint: Patient states: ONGOING, INTERMITTENT DIZZINESS, WORSE THIS MORNING, kb3 WORSE WITH MOVEMENT. Coronavirus screen: Vaccine status: Patient reports receiving the 2nd dose of the covid vaccine. Client denies travel out of the [place] in the last 14 days. Ebola Screen: Patient negative for fever greater than or equal to 101.5 degrees Fahrenheit, and additional compatible Ebola Virus Disease symptoms Patient denies exposure to infectious person. Patient denies travel to an Ebola-affected area in the 21 days before illness onset. Initial Sepsis Screen: Does the patient meet any 2 criteria? No. Patient's initial sepsis screen is negative. Does the patient have a suspected source of infection? No. Patient's initial sepsis screen is negative. Risk Assessment: Do you want to hurt yourself or someone else? Patient reports no desire to harm self or others. Onset of symptoms was June 25, 2023 at 08:00. 12:21 Acuity: DARLENE 2 kb3 Triage Assessment: 12:23 General: Appears in no apparent distress. Behavior is calm, cooperative. Pain: Denies kb3 pain. Neuro: No deficits noted. Level of Consciousness is awake, alert, obeys commands, Oriented to person, place, time, situation, Maintenance Service Dispatcher are equal bilaterally Moves all extremities. Gait is steady, Speech is normal, Facial symmetry appears normal, Pupils are PERRLA, Intact Reports dizziness. Cardiovascular: Reports lightheadedness, Denies chest pain, nausea, shortness of breath, Rhythm is sinus bradycardia. Respiratory: No deficits noted. Denies cough, shortness of breath labored breathing. GI: Patient currently denies constipation, diarrhea, nausea, vomiting. Historical: - Allergies: 12:12 No Known Allergies; as6 - Home Meds: 12:23 atorvastatin 40 mg oral tablet 1 tab daily [Active]; aspirin 81 mg Oral capsule 1 cap kb3 daily [Active]; amlodipine 5 mg tablet 1 tab daily [Active]; - PMHx: 12:23 Hypertensive disorder; Hypercholesterolemia; kb3 - PSHx: 12:12 hernia repair; as6 - Immunization history:: Adult Immunizations up to date. - Social history:: Smoking status: Patient denies any tobacco usage or history of. Screenin:30 [facility] ED Fall Risk Assessment (Adult) History of falling in the last 3 months, kb3 including since admission No falls in past 3 months (0 pts) Confusion or Disorientation No (0 pts) Intoxicated or Sedated No (0 pts) Impaired Gait No (0 pts) Mobility Assist Device Used No (0 pt) Altered Elimination No (0 pt) Score/Fall Risk Level 0 - 2 = Low Risk Oriented to surroundings. Abuse screen: Denies threats or abuse. Denies injuries from another. Nutritional screening: No deficits noted. Tuberculosis screening: No symptoms or risk factors identified. [place] Swallow Protocol Brief Cognitive Screen What is your name? Normal, Where are you right now? Normal, What year is it? Normal. Oral Mechanism Examination Facial Symmetry: Normal, Motion: Normal, Lip Closure: Normal, Oral Mechanism Result: Normal. 3 oz Water Swallow Challenge: Pt able to drink all water without stopping, coughing, choking or throat clearing: Yes. 12:30 VAN Screening: Arm Drift: Patient shows no arm weakness. Patient is VAN negative. kb3 Assessment: 12:38 Reassessment: No changes from previously documented assessment. Patient and/or family kb3 updated on plan of care and expected duration. Pain level reassessed. Patient is alert, oriented x 3, equal unlabored respirations, skin warm/dry/pink. General: Appears in no apparent distress. comfortable, Behavior is calm, cooperative. Pain: Denies pain. Neuro: No deficits noted. Level of Consciousness is awake, alert, obeys commands, Oriented to person, place, time, situation, Maintenance Service Dispatcher are equal bilaterally Moves all extremities. Gait is steady, Speech is normal, Facial symmetry appears normal, Pupils are PERRLA, Intact. 13:38 Reassessment: No changes from previously documented assessment. Patient and/or family ll1 updated on plan of care and expected duration. Pain level reassessed. Patient is alert, oriented x 3, equal unlabored respirations, skin warm/dry/pink. Patient states feeling better. Vital Signs: 12:21 BP 128 / 77; Pulse 52; Resp 18; Temp 98.1; Pulse Ox 99% ; Weight 63.5 kg; Height 5 ft. kb3 7 in. ; Pain 0/10; 13:11 BP 121 / 74 Supine; Pulse 48; Resp 14; Pulse Ox 100% on R/A; bc6 13:11 BP 148 / 83 Sitting; Pulse 49; Resp 12; Pulse Ox 100% on R/A; bc6 13:11 BP 141 / 81 Standing; Pulse 55; Resp 12; Pulse Ox 100% on R/A; bc6 13:38 BP 146 / 81; Pulse 50; Resp 13; Pulse Ox 100% ; Pain 0/10; ll1 12:21 Body Mass Index 21.93 (63.50 kg, 170.18 cm) kb3 12:21 Pain Scale: Adult kb3 13:38 Pain Scale: Adult ll1 NIH Stroke Scale Scores: 12:30 NIHSS Score: 0 kb3 ED Course: 12:06 Patient arrived in ED. ra3 12:12 Arm band placed on Patient placed in an exam room, on a stretcher. as6 12:16 Mehdi Lo, HÉCTOR is Primary Nurse. bp 12:19 Ronda Limon MD is Attending Physician. sp3 12:23 Triage completed. kb3 12:30 Patient has correct armband on for positive identification. Bed in low position. Call kb3 light in reach. Side rails up X2. Adult w/ patient. Provided Education on: Plan of care. 12:30 product marketing coordinator on. Pulse ox on. NIBP on. Warm blanket given. PO fluids given. kb3 12:30 No provider procedures requiring assistance completed. Patient maintains SpO2 kb3 saturation greater than 95% on room air. 12:33 Initial lab(s) drawn, by me, sent to lab. Inserted saline lock: 20 gauge in right bc6 forearm, using aseptic technique. Blood collected. 12:39 Basic Metabolic Panel Sent. bp 12:39 CBC with Diff Sent. bp 12:39 LFT's Sent. bp 12:39 Magnesium Sent. bp 12:39 NT PRO-BNP Sent. bp 12:39 PT-INR Sent. bp 12:39 Troponin HS Sent. bp 13:01 CT Head Brain wo Cont In Process Unspecified. EDMS 13:38 IV discontinued, intact, bleeding controlled, No redness/swelling at site. Pressure ll1 dressing applied. Administered Medications: 12:38 Drug: Meclizine PO 25 mg PO once Route: PO; kb3 13:39 Follow up: Response: No adverse reaction ll1 Medication: 12:38 VIS not applicable for this client. kb3 Outcome: 13:18 Discharge ordered by . jenn3 13:39 Patient left the ED. ll1 NIH Stroke Scale - NIH Stroke Score Date: 06/25/2023 Time: 12:30 Total Score = 0 10. Dysarthria (speech clarity - read or repeat words) - 0(Normal) 11. Extinction and Inattention (visual/tactile/auditory/spatial/personal) - 0(No abnormality) 1a. Level of Consciousness (LOC) - 0(Alert) 1b. Level of Consciousness (LOC) (Month \T\ Age) - 0(Both) 1c. LOC Commands (Open \T\ Closes Eyes/Splitting Machine Operator Helper) - 0(Both) 2. Best Gaze (Lateral Gaze Paresis) - 0(Normal) 3. Visual Field Loss - 0(No visual loss) 4. Facial Palsy - 0(Normal) 5a. Left Arm: Motor (10-second hold) - 0(No drift) 5b. Right Arm: Motor (10-second hold) - 0(No drift) 6a. Left Leg: Motor (5-second hold - always test supine) - 0(No drift) 6b. Right Leg: Motor (5-second hold - always test supine) - 0(No drift) 7. Limb Ataxia (finger/nose \T\ heel/hoffman - test with eyes open) - 0(Absent) 8. Sensory Loss (pinprick arms/legs/face) - 0(Normal) 9. Best Language: Aphasia (description/naming/reading) - 0(No aphasia) Initials: kb3 Signatures: Dispatcher [employer] EDMehdi Estrada RN RN Quintin Garza RN RN ll1 Ronda Limon MD MD sp3 Jeovanny Miller RN RN as6 Zakiya Rizzo RN RN kb3 Sayra Rodriguez6 Marlene Lynn ra3
--- NOTE | 2023-06-25 13:19 | EDPHYS ---
Physician Documentation [facility] Name: Fabian Galo Age: 67 yrs Sex: Male : 1955 Arrival Date: 06/25/2023 Time: 12:04 Bed 5 Private MD: ED Physician Ronda Limon HPI: 06/24 13:14 This 67 yrs old Black Male presents to ER via Ambulatory with complaints of sp3 Dizziness/vertigo. 13:15 67-year-old male with history of hypertension, hyperlipidemia, prior vertigo who had sp3 previously been on meclizine now presents to the ED with chief complaint vertigo symptoms with room spinning on head movement that started yesterday evening. Patient has had prior negative workup and his program proposals coordinator has referred him to neurology which she is seeing next week. Symptoms are worse when he looks up or sudden movements of the head. He denies any headache, weakness, numbness or tingling, facial droop, changes in speech or mentation, memory loss or any other signs or symptoms on ROS at this time. He also denies chest pain, shortness of breath, abdominal pain, syncope, near syncope, trauma.. Historical: - Allergies: 12:12 No Known Allergies; as6 - Home Meds: 12:23 atorvastatin 40 mg oral tablet 1 tab daily [Active]; aspirin 81 mg Oral capsule 1 cap kb3 daily [Active]; amlodipine 5 mg tablet 1 tab daily [Active]; - PMHx: 12:23 Hypertensive disorder; Hypercholesterolemia; kb3 - PSHx: 12:12 hernia repair; as6 - Immunization history:: Adult Immunizations up to date. - Social history:: Smoking status: Patient denies any tobacco usage or history of. ROS: 13:16 Constitutional: Negative for fever, chills, and weight loss, Eyes: Negative for injury, sp3 pain, redness, and discharge, ENT: Negative for injury, pain, and discharge, Neck: Negative for injury, pain, and swelling, Cardiovascular: Negative for chest pain, palpitations, and edema, Respiratory: Negative for shortness of breath, cough, wheezing, and pleuritic chest pain, Abdomen/GI: Negative for abdominal pain, nausea, vomiting, diarrhea, and constipation, Back: Negative for injury and pain, MS/Extremity: Negative for injury and deformity, Skin: Negative for injury, rash, and discoloration, Psych: Negative for depression, anxiety, suicide ideation, homicidal ideation, and hallucinations, Allergy/Immunology: Negative for hives, rash, and allergies, Endocrine: Negative for neck swelling, polydipsia, polyuria, polyphagia, and marked weight changes, Hematologic/Lymphatic: Negative for swollen nodes, abnormal bleeding, and unusual bruising, 13:16 All other systems are negative, Exam: 13:16 Constitutional: This is a well developed, well nourished patient who is awake, alert, sp3 and in no acute distress. Head/Face: Normocephalic, atraumatic. Eyes: Pupils equal round and reactive to light, extra-ocular motions intact. Lids and lashes normal. Conjunctiva and sclera are non-icteric and not injected. Cornea within normal limits. Periorbital areas with no swelling, redness, or edema. ENT: Nares patent. No nasal discharge, no septal abnormalities noted. External auditory canals are clear. Oropharynx with no redness, swelling, or masses, exudates, or evidence of obstruction, uvula midline. Mucous membranes moist. Neck: Trachea midline, no thyromegaly or masses palpated, and no cervical lymphadenopathy. Supple, full range of motion without nuchal rigidity, or vertebral point tenderness. No Meningismus. Chest/axilla: Normal chest wall appearance and motion. Nontender with no deformity. No lesions are appreciated. Cardiovascular: Regular rate and rhythm with a normal S1 and S2. No gallops, murmurs, or rubs. Normal PMI, no JVD. No pulse deficits. Respiratory: Lungs have equal breath sounds bilaterally, clear to auscultation and percussion. No rales, rhonchi or wheezes noted. No increased work of breathing, no retractions or nasal flaring. Abdomen/GI: Soft, non-tender, with normal bowel sounds. No distension or tympany. No guarding or rebound. No evidence of tenderness throughout. Back: No spinal tenderness. No costovertebral tenderness. Full range of motion. Skin: Warm, dry with normal turgor. Normal color with no rashes, no lesions, and no evidence of cellulitis. MS/ Extremity: Pulses equal, no cyanosis. Neurovascular intact. Full, normal range of motion. Psych: Awake, alert, with orientation to person, place and time. Behavior, mood, and affect are within normal limits. 13:16 Neuro: No focal deficits on neurological exam. Patient does have induced vertigo with mild horizontal nystagmus. Ocular exam otherwise negative. Neurological exam otherwise negative., 13:17 ECG was reviewed by the Attending Physician. EKG demonstrates sinus bradycardia at 50 sp3 bpm with normal intervals, normal QRS, normal axis, normal axis ST segments without evidence of acute ischemia. Vital Signs: 12:21 BP 128 / 77; Pulse 52; Resp 18; Temp 98.1; Pulse Ox 99% ; Weight 63.5 kg; Height 5 ft. kb3 7 in. ; Pain 0/10; 13:11 BP 121 / 74 Supine; Pulse 48; Resp 14; Pulse Ox 100% on R/A; bc6 13:11 BP 148 / 83 Sitting; Pulse 49; Resp 12; Pulse Ox 100% on R/A; bc6 13:11 BP 141 / 81 Standing; Pulse 55; Resp 12; Pulse Ox 100% on R/A; bc6 13:38 BP 146 / 81; Pulse 50; Resp 13; Pulse Ox 100% ; Pain 0/10; ll1 12:21 Body Mass Index 21.93 (63.50 kg, 170.18 cm) kb3 12:21 Pain Scale: Adult kb3 13:38 Pain Scale: Adult ll1 NIH Stroke Scale Scores: 12:30 NIHSS Score: 0 kb3 MDM: 12:20 Patient medically screened. sp3 13:17 Data reviewed: vital signs, nurses notes, lab test result(s), EKG, radiologic studies. sp3 13:17 ED course: 67-year-old male with inducible vertigo. I believe this is peripheral in sp3 nature and not central. Clinically have also ruled out TIA/CVA, ICH, infection including meningitis, or any other critical pathology. CT scan of the head is negative and laboratory values are all within normal limits. Patient received meclizine for which she has mild improvement. I will represcribe meclizine and patient can continue to keep his neurology appointment for next week in the [place] area. Of also advised him to potentially see ENT. He knows to return here for any worsening symptoms. He can safely be discharged at this time for which patient agrees with the plan.. 06/24 12:25 Order name: Basic Metabolic Panel; Complete Time: 13:13 sp3 06/24 12:25 Order name: CBC with Diff; Complete Time: 13:13 3 06/24 12:25 Order name: LFT's; Complete Time: 13:13 3 06/24 12:25 Order name: Magnesium; Complete Time: 13:13 sp3 06/24 12:25 Order name: NT PRO-BNP; Complete Time: 13:13 3 06/24 12:25 Order name: PT-INR; Complete Time: 13:13 3 06/24 12:25 Order name: Troponin HS; Complete Time: 13:13 sp3 06/24 12:25 Order name: CT Head Brain wo Cont; Complete Time: 13:13 3 06/24 12:25 Order name: Cardiac monitoring; Complete Time: 12:38 3 06/24 12:25 Order name: EKG - Nurse/Tech; Complete Time: 12:38 3 06/24 12:25 Order name: IV Saline Lock; Complete Time: 12:38 3 06/24 12:25 Order name: Labs collected and sent; Complete Time: 12:38 3 06/24 12:25 Order name: O2 Sat Monitoring; Complete Time: 12:38 3 06/24 12:25 Order name: Orthostatics; Complete Time: 12:52 sp3 Administered Medications: 12:38 Drug: Meclizine PO 25 mg PO once Route: PO; kb3 13:39 Follow up: Response: No adverse reaction ll1 Disposition Summary: 06/25/23 13:18 Discharge Ordered Notes: Location: Home sp3 Condition: Stable sp3 Diagnosis - Vertigo, dizziness sp3 Followup: sp3 - With: Private Physician - When: Upon discharge from the Emergency Department - Reason: Continuance of care Discharge Instructions: - Discharge Summary Sheet sp3 - Vertigo sp3 Forms: - Medication Reconciliation Form sp3 - Thank You Letter sp3 - Antibiotic Education sp3 - Prescription Opioid Use sp3 - Patient Portal Instructions sp3 - Leadership Thank You Letter sp3 Prescriptions: - Meclizine 25 mg Oral Tablet - take 1 tablet ORAL route every 8 hours As needed; 30 tablet; Refills: 0, sp3 Product Selection Permitted NIH Stroke Scale - NIH Stroke Score Date: 06/25/2023 Time: 12:30 Total Score = 0 10. Dysarthria (speech clarity - read or repeat words) - 0(Normal) 11. Extinction and Inattention (visual/tactile/auditory/spatial/personal) - 0(No abnormality) 1a. Level of Consciousness (LOC) - 0(Alert) 1b. Level of Consciousness (LOC) (Month \T\ Age) - 0(Both) 1c. LOC Commands (Open \T\ Closes Eyes/Tire Debeader) - 0(Both) 2. Best Gaze (Lateral Gaze Paresis) - 0(Normal) 3. Visual Field Loss - 0(No visual loss) 4. Facial Palsy - 0(Normal) 5a. Left Arm: Motor (10-second hold) - 0(No drift) 5b. Right Arm: Motor (10-second hold) - 0(No drift) 6a. Left Leg: Motor (5-second hold - always test supine) - 0(No drift) 6b. Right Leg: Motor (5-second hold - always test supine) - 0(No drift) 7. Limb Ataxia (finger/nose \T\ heel/hoffman - test with eyes open) - 0(Absent) 8. Sensory Loss (pinprick arms/legs/face) - 0(Normal) 9. Best Language: Aphasia (description/naming/reading) - 0(No aphasia) Initials: kb3 Signatures: Dispatcher [employer] EDMS Ronda Limon MD MD sp3 Jeovanny Miller RN RN as6 Zakiya Rizzo RN RN kb3 Quintin Lundy RN ll1 Corrections: (The following items were deleted from the chart) 12:25 12:25 Head Brain Wo [id number] ordered. EDMS EDMS
[2023-06-25 15:21] VITALS: BP 146/81; TEMP 98.1; O2SAT 100
--- NOTE | 2023-06-26 13:42 | EKG ---
Test Date: 2023-06-25 Test Time: 11:40:13 Shot Fireman: CRISTOFER MEASUREMENT RESULTS: Intervals: Rate: 49 [place]: 174 QRSD: 100 QT: 484 QTc: 437 [place]: P: 75 [place]: 174 QRS: 88 T: 71 INTERPRETIVE STATEMENTS: Marked sinus bradycardia Abnormal ECG Compared to ECG 08/21/2010 21:04:38 No significant changes Electronically Signed On 06-26-23 13:36:59 CDT by Damir Werner
--- NOTE | 2023-06-26 13:42 | EKG ---
Test Date: 2023-06-25 Test Time: 11:40:46 Insurance Sales Specialist: CRISTOFER MEASUREMENT RESULTS: Intervals: Rate: 48 [place]: 174 QRSD: 96 QT: 482 QTc: 430 [place]: P: 79 [place]: 174 QRS: 87 T: 75 INTERPRETIVE STATEMENTS: Marked sinus bradycardia Abnormal ECG Compared to ECG 06/25/2023 11:40:13 No significant changes Electronically Signed On 06-26-23 13:36:57 CDT by Damir Werner
== END 2023-06-25 13:39 | disposition home or self-care (01) ==
LOC: ER 12:04
DX: R42 Dizziness and giddiness (principal); I10 Essential (primary) hypertension; Z79.82 Long term (current) use of aspirin
CPT/HCPCS: 93005 ×2; 85025; 80048; 36415; 83735; 85610; 80076; 84484; 83880; 70450; 99285; J8597

== ENCOUNTER 2023-11-27 08:53 | Emergency (ER) | payer BC ==
--- OUTSIDE RECORDS SUMMARY | 2023-11-27 08:57 | XMS REPORT | Continuity of Care Document ---
Author Name Unknown Address [address] [facility] [address] [place] [address] [facility] thconnect Address [address] [facility] [address] [place] [address] Care Team Providers Care Director Of Cardiac Rehabilitation Name Role Phone Pcp, Patient Does Not Have A Primary Care Physic muna Pradip Mccray MD Attending Clinician [phone] PRADIP MCCRAY Attending Clinician Unavailable 1, [facility] Attending Clinician Alexandria vailable 2, [facility] [employer] Attending Clinician [place] vailable Boase Jairo Hamilton Attending Clinician Unavaila JAIRO Davis Attending Clinician Unavailable KATT MENDEZ Attending Clinician Unavailabl e KATT MENDEZ Attending Clinician Unavailabl e Josue Warner PT, Nila Attending Clinician Un available Katt Mendez MD Attending Clinician [phone] SUZIE CUNNINGHAM Attending Clinician Unavail able SUZIE CUNNINGHAM Attending Clinician Unavail able PAVAN GARG Attending Clinician Unavail able PAVAN GARG Attending Clinician Unavail able Draw, [facility] Attending Clinician Unavailabl e Pathology Attending Clinician Unavailable Carlos Colon MD Attending Clinician [phone] CARLOS COLON Attending Clinician Unavailable Braden Latif MD Attending Clinician [phone] George Olsen MD Attending Clinician [phone] GEORGE OLSEN Attending Clinician Unavailable Lab, Ang - Db Attending Clinician Unavailable Pavan Garg MD Attending Clinician [phone] Chen Pack NP Attending Clinician [phone] CHEN PACK Admitting Clinician Unavailab le Payers Payer Name Policy Type Policy Number Effective Date Expirati on Date Source Problems Condition Name Condition Details Condition Category Status Onset Date Resolution Date Last Treatment Date Treating Clinician Comments Source Dizziness and giddiness Dizziness and giddiness Disease Active 06-08 00:00: 00 [facility] Essential hypertensi on Essential hypertensi on Disease Active 06-08 00:00: 00 [facility] Allergies, Adverse Reactions, Alerts Allergy Name Allergy Type Status Severity Reaction(s) Onset Date Inactive Date Treating Clinician Comments Source NO KNOWN ALLERGIE S Drug Class Active [facility] Social History Social Habit Start Date Stop Date Quantity Comments Source [facility] of tobacco use Passive smoker [facility] Tobacco use and exposure 2023-06-27 00:00:00 2023-06-27 00:00:00 Smokeless tobacco non-user [facility] History of Social function 2023-04-07 00:00:00 2023-04-07 00:00:00 [facility] Sex assigned at 1955 00:00:00 1955 00:00:00 [facility] Smoking Status Start Date Stop Date Source Tobacco smoking consumption unknown [facility] Ex-smoker 2023-06-27 00:00:00 2023-06-27 00:00:00 [facility] Smokes tobacco daily 2023-04-07 00:00:00 [facility] Medications Ordered Medication Name Filled Medication Name Start Date Stop Date Current Medication? Ordering Clinician Indication Dosage Frequency Signature (SIG) Comments Components Source aspirin 81 mg EC tablet 04-21 00:00: 00 04-21 05:59 :00 No [id number] 81mg Take 1 tablet by mouth in the morning. [facility] atorvastati n 40 mg tablet 04-21 00:00: 00 04-21 05:59 :00 No [id number] 9104 40mg Take 1 tablet by mouth at bedtime. [facility] amLODIPine 5 mg tablet 04-21 00:00: 00 04-21 05:59 :00 No [id number] 5mg Take 1 tablet by mouth in the morning. [facility] docusate (COLACE) 50 mg/5 mL solution 100 mg 04-03 15:00: 00 Yes 100mg 100 mg, Oral, DAILY, First dose on Mon04/03/23 at 0900, Until Discontinu ed, Routine [facility] iopamidol (ISOVUE 370-500 mL) injection 80 mL 04-02 23:30: 00 04-02 23:45 :00 No [id number] 80mL 80 mL, Intravenou s, ONCE, 1 dose, On Mon04/02/23 at 1745, Routine [facility] meclizine (TRAVEL-EAS E (MECLIZINE) ) tablet 25 mg 04-02 21:00: 00 04-02 21:26 :00 No 25mg 25 mg, Oral, ONCE, 1 dose, On Mon04/02/23 at 1500, SAM [facility] NaCl 0.9% (NS) bolus infusion 1,000 mL 04-02 21:00: 00 04-02 21:27 :00 No 1000mL at 999 mL/hr, 1,000 mL, IV Infusion, ONCE, 1 dose, On Mon04/02/23 at 1500, SAM [facility] meclizine 25 mg tablet 04-02 00:00: 00 Yes [id number] 25mg Take 1 tablet by mouth 3 (three) times daily as needed for Dizziness. [facility] Vital Signs Vital Name Observation Time Observation Value Comments Saima annie Systolic blood pressure 2023-07-10 18:09:00 127 mm[Hg] [facility] Diastolic blood pressure 2023-07-10 18:09:00 77 mm[Hg] [facility] Heart rate 2023-07-10 18:09:00 66 /min [facility] Body temperature 2023-07-10 18:05:00 36.67 Kirtsen [facility] Body weight 2023-07-10 18:05:00 63.095 kg [facility] BMI 2023-07-10 18:05:00 21.79 kg/m2 [facility] Systolic blood pressure 2023-06-27 20:20:00 129 mm[Hg] [facility] Diastolic blood pressure 2023-06-27 20:20:00 76 mm[Hg] [facility] Heart rate 2023-06-27 20:20:00 67 /min [facility] Body height 2023-06-27 20:20:00 170.2 cm [facility] Body weight 2023-06-27 20:20:00 63.504 kg [facility] BMI 2023-06-27 20:20:00 21.93 kg/m2 [facility] Oxygen saturation in Arterial blood by Pulse oximetry 2023-06-27 20:20:00 98 /min [facility] Systolic blood pressure 2023-06-09 21:10:00 129 mm[Hg] [facility] Diastolic blood pressure 2023-06-09 21:10:00 73 mm[Hg] [facility] Heart rate 2023-06-09 21:10:00 61 /min [facility] Respiratory rate 2023-06-09 21:10:00 20 /min [facility] Body height 2023-06-09 21:10:00 170.2 cm [facility] Body weight 2023-06-09 21:10:00 62.234 kg [facility] BMI 2023-06-09 21:10:00 21.49 kg/m2 [facility] Oxygen saturation in Arterial blood by Pulse oximetry 2023-06-09 21:10:00 97 /min [facility] Systolic blood pressure 2023-04-21 22:39:00 152 mm[Hg] [facility] Diastolic blood pressure 2023-04-21 22:39:00 103 mm[Hg] [facility] Heart rate 2023-04-21 22:39:00 72 /min [facility] Body temperature 2023-04-21 21:57:00 37.28 Kirsten [facility] Respiratory rate 2023-04-21 21:57:00 18 /min [facility] Body weight 2023-04-21 21:57:00 63.141 kg [facility] BMI 2023-04-21 21:57:00 21.80 kg/m2 [facility] Oxygen saturation in Arterial blood by Pulse oximetry 2023-04-21 21:57:00 98 /min [facility] Systolic blood pressure 2023-04-07 18:02:00 132 mm[Hg] [facility] Diastolic blood pressure 2023-04-07 18:02:00 89 mm[Hg] [facility] Heart rate 2023-04-07 17:52:00 58 /min [facility] Respiratory rate 2023-04-07 17:52:00 18 /min [facility] Body height 2023-04-07 17:52:00 170.2 cm [facility] Body weight 2023-04-07 17:52:00 61.236 kg [facility] BMI 2023-04-07 17:52:00 21.14 kg/m2 [facility] Oxygen saturation in Arterial blood by Pulse oximetry 2023-04-07 17:52:00 100 /min [facility] Systolic blood pressure 2023-04-03 01:00:00 145 mm[Hg] [facility] Diastolic blood pressure 2023-04-03 01:00:00 85 mm[Hg] [facility] Heart rate 2023-04-03 01:00:00 47 /min [facility] Body temperature 2023-04-03 01:00:00 37 Kirsten [facility] Respiratory rate 2023-04-03 01:00:00 17 /min [facility] Oxygen saturation in Arterial blood by Pulse oximetry 2023-04-03 01:00:00 100 /min [facility] Body height 2023-04-02 18:14:00 170.2 cm [facility] Body weight 2023-04-02 18:14:00 62.596 kg [facility] BMI 2023-04-02 18:14:00 21.61 kg/m2 [facility] Procedures Procedure Date / Time Performed Performing Clinicia n Source MR BRAIN WO CONTRAST WITH NEUROQUANT 2023-07-10 14:07:00 Suzie Cunningham [facility] CT HEAD WO CONTRAST 2023-04-02 18:57:58 Stephani Pack [facility] TROPONIN I 2023-04-02 18:36:00 Chen Pack Un [facility] COMP. METABOLIC PANEL ([id number]) 2023-04-02 18:36:00 Chen Pack [facility] CBC WITH DIFF 2023-04-02 18:36:00 [facility] D-DIMER 2023-04-02 18:36:00 Chen Pack [facility] HB ECG ROUTINE & RHYTHM STRIP 2023-04-02 18:27:46 Chen Pack [facility] NOTICE OF PRIVACY PRACTICES 2023-04-02 18:11:52 Doctor Unassigned, Kaser [facility] CONSENT/REFUSAL FOR DIAGNOSIS AND TREATMENT 2023-04-02 18:10:49 Doctor Unassigned, Kaser [facility] Encounters Start Date/Time End Date/Time Encounter Type Admission Type Attending [facility] Care Facility Care Department Encounter ID Source 2023-10-16 00:00:00 2023-10-16 12:08:42 Telephone Pradip Mccray [facility] 1.2.840.114 350.1.13.10 4.2.7.2.686 [id number] [facility] 2023-10-16 09:00:00 2023-10-16 09:45:00 Ancillary Visit 1, [facility] 2, [facility] [place], [facility] BANK BLDG. ..840.114 350.1.13.10 4.2.7.2.686 [id number] [facility] 2023-10-16 09:00:00 2023-10-16 09:00:00 Outpatient R JAIRO MCINTOSH KIMBERLY [facility] [id number] [facility] 2023-07-20 10:15:00 2023-07-20 11:43:07 Outpatient R KATT MENDEZ CRAIG [facility] [id number] [facility] 2023-07-20 10:15:00 2023-07-20 11:43:07 Ancillary Visit Nila Salgado Craig [facility] .840.114 350.1.13.10 4.2.7.2.686 [id number] [facility] 2023-07-10 08:25:32 2023-07-10 23:59:00 Outpatient SUZIE ROD ALLYSON [facility] [id number] [facility] 2023-07-10 08:25:32 2023-07-10 23:59:00 Hospital Encounter Suzie Cunningham [facility] 1.840.114 350.1.13.10 4.2.7.2.686 [id number] [facility] 2023-07-10 13:00:00 2023-07-10 13:45:14 Office Visit Pradip Mccray [facility] 03.28.840.114 350.1.13.10 4.2.7.2.686 [id number] [facility] 2023-07-03 08:00:00 2023-07-03 08:00:00 Outpatient PAVAN GRECO HOWARD [facility] [id number] [facility] 2023-06-27 16:45:00 2023-06-27 17:00:00 Ironer Sock Visit Paul, [facility] Pathology [facility] 1.2.840.114 350.1.13.10 4.2.7.2.686 [id number] [facility] 2023-06-27 15:45:00 2023-06-27 16:30:00 Office Visit CarlosJose lugocarmen [facility] 1.2.840.114 350.1.13.10 4.2.7.2.686 [id number] [facility] 2023-06-27 15:45:00 2023-06-27 15:45:00 Outpatient [facility] [id number] [facility] 2023-06-27 00:00:00 2023-06-27 00:00:00 Telephone Braden Latif [facility] 1.2.840.114 350.1.13.10 4.2.7.2.686 [id number] [facility] 2023-06-20 15:00:00 2023-06-20 15:00:00 Outpatient Norma COLON CARLOS [facility] [id number] [facility] 2023-06-09 16:00:00 2023-06-09 16:30:00 Office Visit George Olsen [facility] 1.2.840.114 350.1.13.10 4.2.7.2.686 [id number] [facility] 2023-06-09 16:00:00 2023-06-09 16:00:00 Outpatient GEORGE MCINTOSH [facility] [id number] [facility] 2023-05-09 00:00:00 2023-05-09 00:00:00 [facility] 1.2.840.114 350.1.13.10 4.2.7.2.686 [id number] [facility] 2023-04-24 11:45:00 2023-04-24 12:34:31 Outpatient PAVAN GRECO HOWARD [facility] [id number] [facility] 2023-04-24 11:45:00 2023-04-24 12:00:00 Ironer Sock Visit Lab, Donavan Garg [facility] 1.284.114 350.1.13.10 4.2.7.2.686 [id number] [facility] 2023-04-21 16:00:00 2023-04-21 16:51:06 Office Visit [facility] 1..114 350.1.13.10 4.2.7.2.686 [id number] [facility] 2023-04-21 16:00:00 2023-04-21 16:51:06 Outpatient Norma RA[facility]L [facility] [id number] [facility] 2023-04-19 00:00:00 2023-04-19 00:00:00 Telephone [facility] 1..114 350.1.13.10 4.2.7.2.686 [id number] [facility] 2023-04-10 00:00:00 2023-04-10 00:00:00 Telephone [facility] 1.2.840.114 350.1.13.10 4.2.7.2.686 [id number] [facility] 2023-04-07 13:08:48 2023-04-07 23:59:00 Outpatient R PAVAN GARG HOWARD [facility] [id number] [facility] 2023-04-07 13:08:48 2023-04-07 23:59:00 Hospital Encounter Pavan Garg [facility] 1.2.840.114 350.1.13.10 4.2.7.2.686 [id number] [facility] 2023-04-07 11:40:00 2023-04-07 13:09:12 Office Visit Pavan Garg [facility] 1.2.840.114 350.1.13.10 4.2.7.2.686 [id number] [facility] 2023-04-02 12:16:00 2023-04-02 19:45:00 Emergency AdeChen dunn [facility] 1.2.840.114 350.1.13.10 4.2.7.2.686 [id number] [facility] 2023-04-02 12:16:00 2023-04-02 19:45:00 Emergency X STEPHANI PACKHARLEY [facility] ERT [id number] [facility] Results Test Description Test Time Test Comments Results Result Comments Source MR BRAIN WO CONTRAST WITH NEUROQUANT 18:46:43 MR BRAIN WO CONTRAST WITH NEUROQUANT COMPARISON: Head CT scan dated on 04/02/2023 HISTORY: atrophy of brain TECHNIQUE: Multiplanar multisequence MRI of the brain was obtained withoutcontrast.Quantitativ e volumetry of the brain was performed using NeuroQuant([employer], [place], [place]) software package. The NeuroQuantanalysis was based on a sagittal 3D volumetric MPRAGE pulse sequence.Sequence-checking was performed to ensure appropriate high-resolution andcontrast image parameters. Correction for field/gradient inhomogeneities,removal of the overlying calvaria, alignment to the probabilistic atlas ofstereotypical anatomy and segmented volumetry of predetermined anatomicareas derived from multiple subjects of multiple age groups was performed.Two automated reports were generated. FINDINGS: Prominent ventricles and cerebral sulci suggestive of mild global volumeloss. No midline shift, hydrocephalus or pathological extra-axial fluidcollection is present. The basal cisterns are unremarkable. No restricted diffusion is present to suggest acute infarct. Scatteredperiventricular and deep white T2/FLAIR hyperintensities, nonspecificlikely sequelae of ischemic microvascular disease. No abnormal gradientblooming. Mucoperiosteal thickening of left frontal, left ethmoid and left sphenoidsinuses. Retention cyst in the left maxillary sinus. No abnormal fluidsignal is present in the mastoid air cells or paranasal air sinuses. Age Related Atrophy report demonstrates: Hippocampal Occupancy Score: 0.79.Hippocampi volume: 5.80 cc, normative percentile of 32.Superior Lateral Ventricles volume: 22.97, normative percentile of 17. Inferior Lateral Ventricles volume: 1.53, normative percentile of 9. The values listed above were within 2 SD of the mean. [facility] CT HEAD WO CONTRAST 21:44:55 EXAM: CT [...] No parenchymal attenuation abnormality is seen. The morales-whitematter differentiation is preserved. ? The mastoid air cells and paranasal air sinuses are clear. Punctatecalcification at the outer table of the occipital bone right to the midline(8; 18-20) could be related to remote trauma. The calvarium and centralskull base are unremarkable. [facility] [id number] 19:31:31* Test Item Value Reference Range Interpretation Comme nts TROPONIN I (test code = 8288882353) 0.004 ng/mL <=0.034 ZACHARY (test code = [...] of biotin. Lab Interpretation (test code = 93368-4) Normal [facility]. METABOLIC PANEL ([id number])2023-04-02 19:19:48* Test Item Value Reference Range Interpretation Comme nts NA (test code = 6392463814) 140 mmol/L 135-145 K (test code = 1674645333) 4.1 mmol/L 3.5-5.0 CL (test code = 4917876230) 107 mmol/L 98-108 CO2 TOTAL (test code = 1251160734) 24 mmol/L 23-31 AGAP (test code = 8878121221) 9 2-16 BUN (test code = 8726153246) 13 mg/dL 7-23 GLUCOSE (test code = 7395210680) 97 mg/dL 70-110 CREATININE (test code = 0637073817) 0.95 mg/dL 0.60-1.25 TOTAL BILI (test code = 7404632641) 0.7 mg/dL 0.1-1.1 CALCIUM (test code = 9118883262) 9.5 mg/dL 8.6-10.6 T PROTEIN (test code = 3835170140) 7.4 g/dL 6.3-8.2 ALBUMIN (test code = 1886129888) 4.1 g/dL 3.5-5.0 ALK PHOS (test code = 0861745764) 81 U/L 34-122 ALTv (test code = 1742-6) 54 U/L 5-50 H AST(SGOT) (test code = 5060825788) 60 U/L 13-40 H eGFR (test code = 83581-3) 86.6 mL/min/1.73m2 CKD-EPI eGFR (2020). Assuming creatinine has been stable day-to-day for at least three months, the eGFR indicates Category G2 (60 - 89 mL/min/1.73 m2) Lab Interpretation (test code = 09807-3) [facility]normal [id number] 19:16:11* Test Item Value Reference Range Interpretation Comments D-DIMER (test code = 8736338256) 0.32 See_Comment [Automated message] The system which [...] a diagnosis. Lab Interpretation (test code = 02102-7) Normal [facility] Notes Date/Time Note Provider Source 2023-10-16 12:07:55 Joe Galo is a 67 year old male Per [facility] clerical EOD: per audio, patient did not have to see ENT. Ryann Ortega [facility] 2023-06-28 11:17:51 Spoke to patient and reiterated medical plan to him. Will call him after MRI brain, TTE, and ENT referral is done. He understood and agrees with next steps. ANGELA-PHYSICIAN OFFICE ASSISTANCE MIDLEVEL PROVIDER [facility] 2023-06-28 08:49:27 Attempt made to contact pt, mailbox is full. Unable to leave a message. Pt is to follow up with him primary care physician and Neurologist. Pt is scheduled to follow up with . Pt needs follow up appointment with per last office note. Vicky Diaz RN [facility] 2023-06-27 17:00:07 Patient had visit with Dr. Colon on 06/27/23. Patient left to go have labs done and then came back to the clinic. Mr Peralta and his caregiver that presented with him were under the impression that they were supposed to come back to clinic after the lab draw. Dr. Colon and Suzie were both gone when patient got back to clinic. Mr. Galo asked me to please place message to have Neurology provider call him SAM. Ivonne Pearl [facility] 2023-06-27 16:45:00 Images from the original note were not included. Venipuncture collection performed by clean technique on the right anticubitus. Total of 1 attempts were made. Slight pressure and a bandage/dressing were applied to the site(s). The patient experienced no complications. The following specimens were processed according to instructions and sent to [facility] laboratories per lab order on 06/27/2023 : LT BLUE SST 1 RED LAV 1 PPT DK GREEN (LiHep) DK GREEN (SodH) MORALES DK BLUE (K2) DK BLUE (S) ACD Blood Culture NIPT/NTD [facility] 2023-05-09 15:44:14 Attempted to contact patient with no answer, unable to leave voicemail do to box being full. L Milligan RN [facility] 2023-05-09 13:22:22 Attempted to contact patient with no answer, unable to leave voicemail due to mailbox being full. L Milligan RN [facility] 2023-05-09 10:30:15 Pt would like a break down of what his medication is and what it is taken for. Please Assist L Arndt [facility] 2023-04-24 11:45:00 Images from the original note were not included. Venipuncture collection performed by clean technique on the right anticubitus. Total of 1 attempts were made. Slight pressure and a bandage/dressing were applied to the site(s). The patient experienced no complications. The following specimens were processed according to instructions and sent to [facility] laboratories per lab order on 04/24/2023 : LT BLUE SST 1 RED LAV PPT DK GREEN (LiHep) DK GREEN (SodH) MORALES DK BLUE (K2) DK BLUE (S) ACD Blood Culture NIPT/NTD [facility] 2023-04-21 16:00:00 Addended by: ZHENG MILLIGAN RN on: 04/24/2023 11:49 AM Modules accepted: Orders L Milligan RN [facility] 2023-04-19 13:31:58 Joe Galo is a 67 year old male that is asking to be called and told what his copay or the $ amount for his appt for 04/21/23. Please advise. L Conley [facility] 2023-04-13 10:59:34 Were you going to be ordering the heart monitor or was he needing to see cardio for that? Pt stated you were going to order it. I will order and then cardiology will follow up on it. [facility] 2023-04-13 10:38:10 C-spine xray IMPRESSION 1. No acute osseous findings are seen. 2. Moderate multilevel degenerative changes of the cervical spine. I don't know what medicine he was given in ER, the one listed in the chart is for dizziness. [facility] 2023-04-12 16:30:56 I already spoke with pt this morning and let him know I was sending the message to Dr. Garg and I would have to wait for Dr. Garg's response. Dr. Garg, pt wants to know results of Xray. Pt wants you to order heart monitor. Pt needs a refill of Meclizine. [facility] 2023-04-12 16:03:12 Joe Galo is a 67 year old male Pt is calling about his results from his test he had last week and when are the other test going to be ordered . Pt also stated he's almost out of his medication that the ER. Gave him. Please advise. L Mcconnell [facility] 2023-04-12 11:48:10 Called pt and let him know per [facility] note, referral for cardiology would be placed. Referral ordered. It is not noted that Dr. Garg would order heart monitor, that would generally be done by cardiology. Pt reports that Dr. Garg told him that he was going to order the heart monitor. Let pt know I would follow up with Dr. Garg. Dr. Garg were you going to order the heart monitor? [facility] 2023-04-12 10:50:12 Pt was STILL requesting heart monitor. Pt states that they have been trying to find out what the hold-up is. They have been trying to contact since last appt to receive monitor. Pt does not use [employer] so would like to be contacted directly with answer. L Dubon [facility] 2023-04-11 10:54:59 Dr. Garg, were you going to order a heart monitor? If so, please place order. [facility] 04/07/23. Note has not been closed. Pt had Xray completed on 04/07/23, has not been resulted yet. EKG not ordered by Dr. Garg and not completed. [facility] 2023-04-10 11:56:12 Joe Galo is a 67 year old male Pt calling requesting results of EKG done on 04/07/23. Pt. Also asking for status of heart monitor. Pt states he was suppose to have one put on but was told it had to be ordered and hasn't received a call. Please advise. [employer] Lindsay [facility] 2023-04-02 19:44:20 Pt given printed and verbal discharge instructions regarding vertigo, syncope, bilateral impacted cerumen, and dizziness. Prescriptions provided Pt verbalized understanding of instructions, pt awake alert oriented, resp reg unlabored, skin w/d, color appropriate for race, moves all ext well,pt encouraged to follow up with pcp Advised to seek medical attention for new/prolonged/worsening of symptoms No adverse reaction to meds given in ER noted upon discharge PIV d'cd, dressing to site, catheter in tact. Awake, alert oriented, resp reg unlabored, skin w/d, pt leaving amb with steady gait, in no apparent distress L Vasquez RN [facility] 2023-04-02 12:59:40 ERP notified of the patient being dizzy and almost syncopal episode when the graphics edit technician helped the patient get off the CT table and into the wheelchair. Patient also complained of consistent dizziness during the orthostatic vital signs. L Morley RN [facility] 2023-04-02 12:35:59 04/02/23 1230 04/02/23 1232 04/02/23 1234 Orthostatic Vitals BP 151/83 (patient complains of feeling dizzy while lying down) 171/88 (Complaing of feeling dizzy while sitting up on the side of the bed) (!) 170/96 (Patient feeling a little whoozy but the longer he stood the dizziness went away) BP Location Left arm Left arm Left arm Position Lying Sitting Standing Pulse 58 68 66 [facility] 2023-04-02 12:35:44 04/02/23 1230 04/02/23 1232 04/02/23 1234 Orthostatic Vitals BP 151/83 (patient complains of feeling dizzy while lying down) 171/88 (Complaing of feeling dizzy while sitting up on the side of the bed) (!) 170/96 (Patient feeling a little whoozy but the longer he stood the dizziness went away) BP Location Left arm Left arm Left arm Position Lying Sitting Standing Pulse 58 68 66 [facility] 2023-04-02 12:12:47 CC: patient presents to the ER with complaints of syncope that occurred this morning when getting up out of bed. States symptoms happened twice, patient has been sitting up because laying down makes symptoms worse. Awake, alert, oriented, resp reg unlabored, skin warm and dry, color appropriate for race, moves all ext without difficulty, amb without assistance. Appears in no distress. [facility]
[2023-11-27] MEDS ORDERED: KETOROLAC 30 MG/ML INJ ONE (09:16)
[2023-11-27] MEDS ORDERED: HYDROCODONE/APAP 5/325 MG TAB ONE (09:17)
--- NOTE | 2023-11-27 10:03 | RAD REPORT ---
EXAM DESCRIPTION: RAD - Knee Left 3 View - 11/27/2023 9:24 am CLINICAL HISTORY: PAIN COMPARISON: No comparisons FINDINGS/IMPRESSION: No acute fracture. No malalignment. Moderate patellofemoral compartment degener ative changes including sclerosis and subchondral cystic changes.
--- NOTE | 2023-11-27 10:13 | ER ---
Nurse's Notes [facility] Name: Fabian Galo Age: 67 yrs Sex: Male : 1955 Arrival Date: 11/27/2023 Time: 08:53 Bed 19 Private MD: Diagnosis: Sprain of other specified parts of left knee Presentation: 11/26 09:11 Chief complaint: Patient states: "I bumped my left knee against a car I was working on rs5 last Monday and it's been hurting ever since". Coronavirus screen: At this time, the client does not indicate any symptoms associated with coronavirus-19. Ebola Screen: No symptoms or risks identified at this time. Initial Sepsis Screen: Does the patient meet any 2 criteria? No. Patient's initial sepsis screen is negative. Does the patient have a suspected source of infection? No. Patient's initial sepsis screen is negative. Risk Assessment: Do you want to hurt yourself or someone else? Patient reports no desire to harm self or others. Onset of symptoms was November 27, 2023. 09:11 Method Of Arrival: Ambulatory rs5 09:11 Acuity: DARLENE 3 rs5 Triage Assessment: 09:13 General: Appears in no apparent distress. uncomfortable, Behavior is calm, cooperative. rs5 Pain: Complains of pain in left knee Pain currently is 8 out of 10 on a pain scale. Quality of pain is described as aching, Is continuous. Historical: - Allergies: 09:13 No Known Allergies; rs5 - PMHx: 09:13 Hypercholesterolemia; Hypertensive disorder; rs5 - PSHx: 09:13 hernia repair; rs5 - Immunization history:: Adult Immunizations up to date. - Infectious Disease History:: Denies. - Social history:: Smoking status: Patient denies any tobacco usage or history of. Screenin:05 [facility] ED Fall Risk Assessment (Adult) History of falling in the last 3 months, rs5 including since admission No falls in past 3 months (0 pts) Confusion or Disorientation No (0 pts) Intoxicated or Sedated No (0 pts) Impaired Gait Yes (1 pt) Mobility Assist Device Used Yes (1 pt) Altered Elimination No (0 pt) Score/Fall Risk Level 0 - 2 = Low Risk Oriented to surroundings, Maintained a safe environment. Abuse screen: Denies threats or abuse. Nutritional screening: No deficits noted. Tuberculosis screening: No symptoms or risk factors identified. Assessment: 09:05 General: Appears in no apparent distress. uncomfortable, Behavior is calm, cooperative. rs5 Pain: Complains of pain in left knee Pain currently is 9 out of 10 on a pain scale. Quality of pain is described as aching, Is continuous. Neuro: Level of Consciousness is awake, alert, obeys commands, Oriented to person, place, time, situation. Cardiovascular: Patient's skin is warm and dry. Respiratory: Airway is patent Respiratory effort is even, unlabored, Respiratory pattern is regular, symmetrical. GI: Abdomen is round non-distended, Abd is soft and non tender X 4 quads. : No signs and/or symptoms were reported regarding the genitourinary system. EENT: No signs and/or symptoms were reported regarding the EENT system. Derm: Skin is intact, Skin is dry, Skin is normal. Musculoskeletal: Range of motion: intact in all extremities. 09:48 Reassessment: Patient and/or family updated on plan of care and expected duration. Pain rs5 level reassessed. Patient is alert, oriented x 3, equal unlabored respirations, skin warm/dry/pink. Patient states feeling better. 10:20 Reassessment: Patient and/or family updated on plan of care and expected duration. Pain rs5 level reassessed. Patient is alert, oriented x 3, equal unlabored respirations, skin warm/dry/pink. Vital Signs: 09:11 BP 144 / 84; Pulse 60; Resp 17; Temp 97.9(O); Pulse Ox 98% ; rs5 09:48 BP 127 / 79; Pulse 54; Resp 17; Pulse Ox 99% on R/A; rs5 10:20 BP 134 / 81; Pulse 61; Resp 16; Pulse Ox 98% on R/A; rs5 ED Course: 08:57 Patient arrived in ED. mr 08:57 Ronda Limon MD is Attending Physician. sp3 08:57 Aimee Ortega PA-C is PHCP. sb4 09:05 Patient has correct armband on for positive identification. Placed in gown. Bed in low rs5 position. Call light in reach. Side rails up X2. 09:05 No provider procedures requiring assistance completed. rs5 09:11 Peter Kenney, RN is Primary Nurse. rs5 09:13 Triage completed. rs5 09:25 Knee Left 3 View XRAY In Process Unspecified. EDMS 10:12 Reece Olvera MD is Referral Physician. sb4 10:21 Patient did not have IV access during this emergency room visit. rs5 Administered Medications: 09:10 CANCELLED (Physician Discretion): dexamethasone 10 mg IM once sb4 09:27 Drug: Ketorolac IM 30 mg IM once Route: IM; Site: left deltoid; rs5 10:20 Follow up: Response: No adverse reaction; Pain is decreased rs5 09:27 Drug: HYDROcodone-acetaminophen PO 5 mg-325 mg 1 tabs PO once Route: PO; rs5 10:20 Follow up: Response: No adverse reaction; Pain is decreased rs5 Medication: 09:49 VIS not applicable for this client. rs5 Outcome: 10:12 Discharge ordered by . sb4 10:21 Patient left the ED. rs5 10:21 Discharged to home ambulatory, rs5 10:21 Condition: stable 10:21 Discharge instructions given to patient, family, Instructed on discharge instructions, follow up and referral plans. medication usage, Demonstrated understanding of instructions, follow-up care, medications, Prescriptions given X 1, Signatures: Dispatcher [employer] EDPR Charley Hirsch, [facility] Ronda Madsen MD MD sp3 Aimee Ortega, PA-C PA-C sb4 Peter Kenney, RN RN rs5
--- NOTE | 2023-11-27 10:13 | EDPHYS ---
Physician Documentation [facility] Name: Fabian Galo Age: 67 yrs Sex: Male : 1955 Arrival Date: 11/27/2023 Time: 08:53 Bed 19 Private MD: ED Physician Ronda Limon HPI: 11/26 09:10 This 67 yrs old Black Male presents to ER via Unassigned with complaints of Knee Pain. sb4 09:10 The patient presents with an injury, pain, that is acute. The complaints affect the sb4 left knee. Context: The problem was sustained at work, resulted from a direct blow, from a heavy object, the patient can fully bear weight, the patient is able to ambulate, Problem is a result from a previous injury: No. Onset: The symptoms/episode began/occurred 3 day(s) ago. Modifying factors: The symptoms are alleviated by remaining still, the symptoms are aggravated by movement, weight bearing. Associated signs and symptoms: The patient has no apparent associated signs or symptoms. Treatment prior to arrival includes: over the counter medications, NSAIDS. The patient has not experienced similar symptoms in the past. The patient has not recently seen a physician. Historical: - Allergies: 09:13 No Known Allergies; rs5 - PMHx: 09:13 Hypercholesterolemia; Hypertensive disorder; rs5 - PSHx: 09:13 hernia repair; rs5 - Immunization history:: Adult Immunizations up to date. - Infectious Disease History:: Denies. - Social history:: Smoking status: Patient denies any tobacco usage or history of. ROS: 09:10 Constitutional: Negative for fever, chills, and weight loss, sb4 09:10 MS/extremity: Positive for injury or acute deformity, pain, of the left knee, 09:10 All other systems are negative, Exam: 09:10 Constitutional: This is a well developed, well nourished patient who is awake, alert, sb4 and in no acute distress. Head/Face: Normocephalic, atraumatic. Eyes: Extra-ocular motions intact. Periorbital areas with no swelling, redness, or edema. ENT: Mucous membranes moist. Skin: Warm, dry with normal turgor. Normal color with no rashes, no lesions, and no evidence of cellulitis. 09:10 Musculoskeletal/extremity: ROM: limited active range of motion due to pain, Circulation is intact in all extremities. Pulses: are normal with no appreciated deficits, Perfusion: the extremity is normally perfused throughout, Calf tenderness, is absent, Sensation intact. Weight bearing: able to fully bear weight, Vital Signs: 09:11 BP 144 / 84; Pulse 60; Resp 17; Temp 97.9(O); Pulse Ox 98% ; rs5 09:48 BP 127 / 79; Pulse 54; Resp 17; Pulse Ox 99% on R/A; rs5 10:20 BP 134 / 81; Pulse 61; Resp 16; Pulse Ox 98% on R/A; rs5 MDM: 08:59 Patient medically screened. sb4 09:37 Independent interpretation of the following test(s) in the Emergency Department X-Ray: sb4 My interpretation is My interpretation of the left knee x-ray images are no acute fracture or dislocation. 10:12 Data reviewed: vital signs, nurses notes, radiologic studies, and as a result, I will sb4 discharge patient. Counseling: I had a detailed discussion with the patient and/or guardian regarding the historical points, exam findings, and any diagnostic results supporting the discharge/admit diagnosis, radiology results, the need for outpatient follow up, a orthopedic surgeon, to return to the emergency department if symptoms worsen or persist or if there are any questions or concerns that arise at home. 11/26 09:10 Order name: Knee Left 3 View XRAY; Complete Time: 10:04 sb4 Administered Medications: 09:10 CANCELLED (Physician Discretion): dexamethasone 10 mg IM once sb4 09:27 Drug: Ketorolac IM 30 mg IM once Route: IM; Site: left deltoid; rs5 10:20 Follow up: Response: No adverse reaction; Pain is decreased rs5 09:27 Drug: HYDROcodone-acetaminophen PO 5 mg-325 mg 1 tabs PO once Route: PO; rs5 10:20 Follow up: Response: No adverse reaction; Pain is decreased rs5 Disposition Summary: 11/27/23 10:12 Discharge Ordered Notes: Location: Home sb4 Problem: new sb4 Symptoms: have improved sb4 Condition: Stable sb4 Diagnosis - Sprain of other specified parts of left knee sb4 Followup: sb4 - With: Reece Olvera MD - When: As needed - Reason: Recheck today's complaints, Re-evaluation by your physician Discharge Instructions: - Discharge Summary Sheet sb4 - Knee Sprain, Adult, [id number] sb4 Forms: - Patient Portal Instructions sb4 - Leadership Thank You Letter sb4 Prescriptions: - Prednisone 20 mg Oral Tablet - take 1 tablet ORAL route once daily for 5 days; 5 tablet; Refills: 0, Product sb4 Selection Permitted Signatures: Dispatcher [employer] Aimee Thomas PA-C PA-C sb4 Peter Kenney RN RN rs5 Corrections: (The following items were deleted from the chart) 09:10 09:10 Dexamethasone IM 10 mg IM once ordered. sb4 sb4
[2023-11-27 10:26] VITALS: TEMP 97.9
[2023-11-27 10:28] VITALS: BP 127/79; O2SAT 99
== END 2023-11-27 10:21 | disposition home or self-care (01) ==
LOC: ER 08:53
DX: S83.8X2A Sprain of other specified parts of left knee, initial encounter (principal)
CPT/HCPCS: 96372; 99284